=== PATIENT | female | born 1960 | race Caucasian/White ===

== ENCOUNTER 2023-11-17 17:56 | Inpatient (IN) | payer OTHER ==
[~2023-11-17] VITALS: Ht 170.2 cm; Wt 80.2 kg
[2023-11-17 18:38] LABS: BASOPHILS ABSOLUTE AUTO 0.09 K/mm3 (0.00-0.23); BASOPHILS PERCENT AUTO 1 % (0-2); EOSINOPHILS ABSOLUTE AUTO 0.34 K/mm3 (0.00-0.68); EOSINOPHILS PERCENT AUTO 3 % (0-6); Hematocrit 35.1 % (33.0-51.0); Hemoglobin 11.4 g/dL (11.5-16.0); IMMATURE GRAN ABSOLUTE AUTO 0.04 K/mm3 (0.00-0.10); IMMATURE GRAN PERCENT AUTO 0 % (0-1); LYMPHOCYTES ABSOLUTE AUTO 1.93 K/mm3 (0.84-5.20); LYMPHOCYTES PERCENT AUTO 19 % (21-46); MONOCYTES ABSOLUTE AUTO 1.06 K/mm3 (0.16-1.47); MONOCYTES PERCENT AUTO 10 % (4-13); Mean Corpuscular HGB 28.9 pg (26.0-34.0); Mean Corpuscular HGB Conc 32.5 g/dL (31.5-36.5); Mean Corpuscular Volume 89 fL (80-100); Mean Platelet Volume 10.8 fL (9.1-12.4); NEUTROPHILS ABSOLUTE AUTO 6.81 K/mm3 (1.96-9.15); NEUTROPHILS PERCENT AUTO 66 % (41-73); Platelet Count 414 K/mm3 (150-400); RDW Coefficient Variation 14.2 % (11.7-14.2); RDW Standard Deviation 46.4 fL (35.1-46.3); Red Blood Cell Count 3.94 M/mm3 (3.80-5.20); White Blood Cell Count 10.27 K/mm3 (4.00-11.30)
[2023-11-17] MEDS ORDERED: Ondansetron HCl 2 MG / ML 2ML Vial IV ONE (18:50)
[2023-11-17] MEDS ORDERED: HYDROmorphone HCl/Pf 1MG SYR IV ONE ×2 (18:50→21:20)
[2023-11-17 18:56] LABS: Albumin, Blood 3.1 g/dL (3.4-5.0); Albumin/Globulin Ratio 0.6 (0.8-1.8); Bilirubin, Total 0.2 mg/dL (0.1-1.0); Bun/Creatinine Ratio 10.4 (12.0-20.0); Calcium, Blood 9.6 mg/dL (8.5-10.1); Creatinine, Blood 7.05 mg/dL (0.40-1.00); Potassium, Blood 4.9 mmol/L (3.5-5.5); Total Protein, Blood 8.1 g/dL (6.4-8.2)
[2023-11-17 20:05] LABS: Source, Urine Clean Catch
[2023-11-17 20:07] LABS: Appearance, Urine Clear (Clear); Bilirubin, Urine Neg (Neg); Blood, Urine Neg (Neg); Color, Urine Yellow (P-Yellow); Glucose Qualitative, Urine Neg (Neg); Ketones, Urine Neg (Neg); Leukocyte Esterase, Urine Neg (Neg); Nitrite, Urine Neg (Neg); Protein, Urine Neg (Neg); Specific Gravity, Urine 1.015 (1.003-1.022); Urobilinogen, Urine NORM (Normal)
[2023-11-17] MEDS ORDERED: NS 1,000 ML IV SCH ×2 (21:20→22:00)
[2023-11-17] MEDS ORDERED: Acetaminophen 325 MG TABLET PO PRN (21:30)
[2023-11-17] MEDS ORDERED: Ondansetron HCl 2 MG / ML 2ML Vial IV PRN (21:30)
[2023-11-17] MEDS ORDERED: FentaNYL Citrate 50 MCG/ML 2 ML Injection IV PRN (21:30)
[2023-11-17] MEDS ORDERED: LOVASTATIN40 MG PO (22:41)
[2023-11-17 23:36] VITALS: BP 161/77
[2023-11-17] MEDS ORDERED: Sodium Bicarb 8.4% Inj 75 MEQ in Sodium Chloride 0.45% 1,000 ML IV SCH (23:59)
[2023-11-18] VITALS (7 sets, daily range): BP systolic 142–163; BP diastolic 73–92
--- NOTE | 2023-11-18 00:15 | NUR ---
ADMISSION: PATIENT WAS RECIEVED FROM ER VIA WHEEL CHAIR. ABLE TO AMBULATE WITH A STEADY GAIT TO THE BED. PATIENT IS ORIENTED TO THE ROOM AND CALL RAMOS. EDUCATION IS GIVEN ON NO SMOKING POLICY AND VERBALIZES UNDERSTANDING. PATIENT REPORTS LOW BACK PAIN 9/10 AND BP IS ELEVATED. TYLENOL AND IV FENTANYL WAS GIVEN WITH GOOD EEFECT.
--- NOTE | 2023-11-18 05:00 | NUR ---
SHIFT SUMMARY: PATIENT IS A&OX4, REPORTS LOW BACK PAIN 9. IV FENTANYL AND TYLENOL WERE GIVEN WITH GOOD EFFECT. VSS, PATIENT HAS BEEN NPO SINCE ME.
[2023-11-18 05:36] LABS: BASOPHILS ABSOLUTE AUTO 0.11 K/mm3 (0.00-0.23); BASOPHILS PERCENT AUTO 1 % (0-2); EOSINOPHILS ABSOLUTE AUTO 0.29 K/mm3 (0.00-0.68); EOSINOPHILS PERCENT AUTO 3 % (0-6); Hematocrit 30.3 % (33.0-51.0); Hemoglobin 9.7 g/dL (11.5-16.0); IMMATURE GRAN ABSOLUTE AUTO 0.02 K/mm3 (0.00-0.10); IMMATURE GRAN PERCENT AUTO 0 % (0-1); LYMPHOCYTES ABSOLUTE AUTO 1.63 K/mm3 (0.84-5.20); LYMPHOCYTES PERCENT AUTO 18 % (21-46); MONOCYTES ABSOLUTE AUTO 1.07 K/mm3 (0.16-1.47); MONOCYTES PERCENT AUTO 12 % (4-13); Mean Corpuscular HGB 28.8 pg (26.0-34.0); Mean Corpuscular Volume 90 fL (80-100); Mean Platelet Volume 11.1 fL (9.1-12.4); NEUTROPHILS ABSOLUTE AUTO 5.97 K/mm3 (1.96-9.15); NEUTROPHILS PERCENT AUTO 66 % (41-73); Platelet Count 369 K/mm3 (150-400); RDW Coefficient Variation 14.6 % (11.7-14.2); RDW Standard Deviation 47.8 fL (35.1-46.3); Red Blood Cell Count 3.37 M/mm3 (3.80-5.20); White Blood Cell Count 9.09 K/mm3 (4.00-11.30)
[2023-11-18 06:03] LABS: Magnesium, Blood 2.4 mg/dL (1.6-2.4); Uric Acid, Blood 7.6 mg/dL (2.6-6.0)
[2023-11-18 06:08] LABS: Alanine Aminotransfer (ALT/SGP 11 U/L (12-78); Albumin, Blood 2.5 g/dL (3.4-5.0); Albumin/Globulin Ratio 0.6 (0.8-1.8); Alk Phos 53 U/L (50-136); Anion Gap 17 mmol/L (3-11); Aspartate Aminotrans (AST/SGOT 14 U/L (12-37); Bilirubin, Direct <0.1 mg/dL (0.0-0.3); Bilirubin, Indirect Unable to Calculate mg/dL (0.1-0.7); Bilirubin, Total 0.2 mg/dL (0.1-1.0); Blood Urea Nitrogen 81 mg/dL (8-24); Bun/Creatinine Ratio 10.2 (12.0-20.0); CO2, Blood 15 mmol/L (21-32); Calcium, Blood 8.3 mg/dL (8.5-10.1); Chloride, Blood 114 mmol/L (98-108); Creatinine, Blood 7.93 mg/dL (0.40-1.00); Glomerular Filtration Rate 5 (60-); Glucose, Blood 85 mg/dL (70-99); Potassium, Blood 5.4 mmol/L (3.5-5.5); Sodium, Blood 141 mmol/L (136-145); Total Protein, Blood 6.5 g/dL (6.4-8.2)
[2023-11-18 06:10] LABS: Phosphorus, Blood 8.1 mg/dL (2.5-4.9)
[2023-11-18] MEDS ORDERED: Sodium Bicarb 8.4% 1 MEQ/ML 50 ML Vial IV ONE (06:35)
[2023-11-18] MEDS ORDERED: Sodium Bicarb 8.4% Inj 150 MEQ in Dextrose 5% 1,000 ML IV SCH ×2 (06:40→14:25)
--- NOTE | 2023-11-18 06:40 | NUR ---
CRITICAL LAB: PHOS IS 8.1, DR DELCID WAS NOTIFIED. NEW ORDER OBTAINED FOR SODIUM BICARB PUSH.
[2023-11-18] MEDS ORDERED: Docusate Sodium 100 MG Cap PO SCH (09:00)
[2023-11-18] MEDS ORDERED: NS 250 ML IV ONE (12:07)
[2023-11-18] MEDS ORDERED: NS 500 ML IV ONE (12:29)
[2023-11-18] MEDS ORDERED: FentaNYL Citrate 50 MCG/ML 2 ML Injection ONE ×2 (12:29→13:33)
[2023-11-18] MEDS ORDERED: Midazolam HCl 1MG / ML 2ML Vial ONE ×2 (12:29→13:32)
[2023-11-18 14:12] LABS: Albumin, Blood 2.9 g/dL (3.4-5.0); Anion Gap 16 mmol/L (3-11); Blood Urea Nitrogen 77 mg/dL (8-24); Bun/Creatinine Ratio 9.4 (12.0-20.0); CO2, Blood 20 mmol/L (21-32); Calcium, Blood 8.9 mg/dL (8.5-10.1); Chloride, Blood 109 mmol/L (98-108); Creatinine, Blood 8.23 mg/dL (0.40-1.00); Glomerular Filtration Rate 5 (60-); Glucose, Blood 86 mg/dL (70-99); Phosphorus, Blood 8.2 mg/dL (2.5-4.9); Potassium, Blood 5.5 mmol/L (3.5-5.5); Sodium, Blood 139 mmol/L (136-145)
[2023-11-18] MEDS ORDERED: Sodium Zirconium Cyclosilicate 10 GM Packet PO SCH (15:00)
[2023-11-18] MEDS ORDERED: Darbepoetin Alfa In Albumn Sol 40 MCG/0.4 ML SC ONE (16:00)
[2023-11-18] MEDS ORDERED: Calcium Acetate 667 MG Gel Cap PO SCH (17:30)
--- NOTE | 2023-11-18 18:28 | NUR ---
SUMMARY- PT A/O X4, COOPERATIVE WITH CARE. MOD ANXIETY RELATED TO SITUATION, CONSTANT WORRY AND QUESTIONS. PT ABLE TO AMBULATE SBA WITH ASSIST OF IV POLE. PT HAD BILAT NEPH TUBES PLACED TODAY IN I.R. WITH DR. BACH. LG AMOUNTS OF URINE FROM R SIDE, PEACH IN COLOR, NO CLOTS. L SIDE DRAINING LESS AMOUNT BUT PATENT AND DRAINING MURRIETA IN COLOR. VSS. PAIN IN BACK (CHRONIC) RELEIVED WITH FENTANYL 50MCG Q2-4 PRN. PT TOLERATED RENAL DIET ABOUT 50% AND CLEAR LIQ DIET. IV NAHCO3 CONT TO INFUSE INCREASED RATE OF 125/HR. WILL REPORT TO NOC PARTH
[2023-11-18] MEDS ORDERED: Atorvastatin 40 MG Tab PO SCH (21:00)
[2023-11-18] MEDS ORDERED: OxyCODONE HCL 5 MG TAB PO PRN (23:10)
[2023-11-19 00:01] VITALS: BP 145/75
[2023-11-19 05:05] LABS: Hematocrit 31.5 % (33.0-51.0); Hemoglobin 10.4 g/dL (11.5-16.0)
[2023-11-19 05:50] LABS: Magnesium, Blood 2.3 mg/dL (1.6-2.4)
[2023-11-19 05:56] LABS: Albumin, Blood 2.7 g/dL (3.4-5.0); Anion Gap 15 mmol/L (3-11); Blood Urea Nitrogen 71 mg/dL (8-24); CO2, Blood 25 mmol/L (21-32); Calcium, Blood 8.6 mg/dL (8.5-10.1); Chloride, Blood 105 mmol/L (98-108); Creatinine, Blood 7.08 mg/dL (0.40-1.00); Glomerular Filtration Rate 6 (60-); Glucose, Blood 106 mg/dL (70-99); Sodium, Blood 141 mmol/L (136-145)
[2023-11-19 06:11] VITALS: BP 153/75
--- NOTE | 2023-11-19 06:27 | NUR ---
SHIFT SUMMARY PT A&OX4 AND ANSWERS QUESTIONS APPROPRIATELY. PT POST-OP NEPHROLOGY PLACEMENT. PT SHOWS INCREASED LEVELS OF ANXIETY SURROUNDING POST-OP RESTRICTIONS. PT EDUCATED ON RESTRICTIONS AND THE IMPORTANCE OF AMBULATION AFTER SURGERY. PT VERBALIZED UNDDERSTANDING. PT MEDICATED SCHEDULED AND PRN PER EMAR. LEFT NEPHROSTOMY LEAKED DURING NIGHT, BUT BANDAGE REMAINS C/D/L. HARDWARE TIGHTENED AND CHECKED, NO LEAKAGE CURRENTLY OBSERVED. VSS, NO COMPLAINTS OF CP/PRESSURE OR SOB. NO ACUTE EVENTS AT THIS TIME. FALL PRECAUTIONS IN PLACE AND CALL LIGHT INREACH.
[2023-11-19] MEDS ORDERED: NS 1,000 ML IV SCH (07:10)
[2023-11-19 07:44] VITALS: BP 158/83
[2023-11-19] MEDS ORDERED: OxyCODONE HCL 5 MG TAB PO PRN (10:35)
[2023-11-19] MEDS ORDERED: Sennosides 8.6 MG Tab PO PRN (10:45)
--- NOTE | 2023-11-19 11:40 | NUR ---
1100- DR BACH IN TO EVAL PT THIS MORNING. AWARE OF THE LG AMOUNT OF OUTPUT FROM THE R SIDE AND MURRIETA COLOR OF THE LEFT AND LESSER OUTPUT- ANSWERED PT'S QUESTIONS. INSTRUCTED RN TO FLUSH NEPH TUBES BILAT DAILY WITH STERILE 10ML SALINE SYRINGE GIVE IT A STRONG FLUSH ENCOURAGING STONES TO FLUSH OUT. WILL WRITE VERBAL ORDER
[2023-11-19 14:50] VITALS: BP 161/84
--- NOTE | 2023-11-19 17:12 | NUR ---
"Spiritual Care | Pt. Request Pt. is standing in her room when she welcomes my visit. Pt. is pleasant. facilitate a life review and consider many matters or personal himanshu and belief. Pt. displays evidence of trust, and verbalizes that she was looking forward to praying together. As we were praying a Rapid Response was called for another pt. This Pt. verbalized gratitude for the spiritual care visit and welcomed this hot mill roller to return."
--- NOTE | 2023-11-19 17:32 | NUR ---
SUMMARY- PT A/O X4, AMBULATES IN ROOM STEADY ON FEET SBA WITH IV POLE. NEPH TUBES BILAT, R DRAINING PROFUSELY, LIGHT MURRIETA NO CLOTS. L DRAINING SPARINGLY MED MURRIETA, NO CLOTS. FLUSHED BILAT NEPH WITH 10ML NS. AFTER FLUSH, R DRAINED HEAVILY 600ML/HR. FOR A FEW HOURS. PT TOLERATING FOOD AND FLUIDS. PAIN CONTROLLED WITH OXYCODONE 5MG APPROX Q4. MEDICATED ONCE WITH FENT 25MCG AFTER FLUSHING NEPH TUBES, PT HAD SEVERE KIDNEY DISCOMFORT. MED AIDED IN RELEIF. PT NAPPED AFTER LUNCH FOR A FEW HOURS. CONT WITH IVF NS AT 50ML/HR, DR DELCID MANAGING IVF AND ELECTROLYTES. TAKING PHOSLO WITH MEALS. VSS, CONT PULSE OX STABLE, CONNECTED WHILE SLEEPING. WILL REPORT TO NOC RN
[2023-11-19 19:35] VITALS: BP 164/88
[2023-11-20 03:18] VITALS: BP 131/69
[2023-11-20 06:03] LABS: Hematocrit 31.5 % (33.0-51.0); Hemoglobin 10.3 g/dL (11.5-16.0)
[2023-11-20 06:25] LABS: Albumin, Blood 2.7 g/dL (3.4-5.0); Anion Gap 12 mmol/L (3-11); Blood Urea Nitrogen 51 mg/dL (8-24); Bun/Creatinine Ratio 10.2 (12.0-20.0); CO2, Blood 26 mmol/L (21-32); Chloride, Blood 107 mmol/L (98-108); Creatinine, Blood 5.01 mg/dL (0.40-1.00); Glomerular Filtration Rate 9 (60-); Glucose, Blood 128 mg/dL (70-99); Magnesium, Blood 1.9 mg/dL (1.6-2.4); Phosphorus, Blood 5.8 mg/dL (2.5-4.9); Potassium, Blood 3.1 mmol/L (3.5-5.5); Sodium, Blood 142 mmol/L (136-145)
[2023-11-20] MEDS ORDERED: Potassium Chl 20MEQ/Water100ML 100 ML IV STA (06:35)
[2023-11-20] MEDS ORDERED: Potassium Chloride 20 MEQ TabCR PO ONE (06:35)
[2023-11-20 08:04] VITALS: BP 135/69
--- NOTE | 2023-11-20 10:27 | NUR ---
Pt. is awake and sitting in a chair when she welcomes my visit. Pt. is pleasant but verbalizes about the discomfort of her potassium drip. Listen with empathy and a calm presence. Pt. displays evidence of being more discourged than our visit yesterday. At the Pts. request this special education aide opened the window blinds. Prayed with Pt. Pt. verbalized gratitude for the spiritual care visit, and displayed a ct scan technologist countenance after our visit. Will remain available to the Pt.
[2023-11-20 16:12] VITALS: BP 131/74
--- NOTE | 2023-11-20 18:20 | NUR ---
SHIFT SUMMARY PT AOX4, CALLS AND MAKES HER NEEDS KNOWN. SBA TO THE BR TO ASSIST WITH MANAGING LINES. PT CAN ALSO BE SLIGHTLY UNSTEADY ON HER FEET. BL NEPHROSTOMY TUBES PATENT AND DRAINING. PT MEDICATED FOR PAIN PER THE EMAR. PT ANXIOUS ABOUT GOING HOME BUT THIS NURSE CONTINUED TO TRY TO EDUCATE THE PT ABOUT THE PROCESS AND PROCEDURE FOR MANAGEMENT OF THE TUBES. PT UP IN THE CHAIR MOST OF THE SHIFT. PT ALSO REPOSITIONS HERSELF IN BED. CALL LIGHT WITHIN REACH, BED LOCKED AND IN THE LOWEST POSITION. WILL REPORT TO ONCOMING NURSE.
[2023-11-20 19:21] VITALS: BP 148/81
[2023-11-21 03:24] VITALS: BP 136/67
--- NOTE | 2023-11-21 04:55 | NUR ---
SHIFT SUMMARY MEDICATED TWICE FOR PAIN. RIGHT NEPH. TUBE DRAINIG WELL, PINK TINGED URINE. THE LEFT NOT AT MUCH. THE LEFT DRESSING MAY BE DAMP IT IS HARD TO TELL.PATIENT ANXIOUS, WORRIED ABOU THE NEPHROSTOMY TUBES.
[2023-11-21 05:51] LABS: Hemoglobin 9.6 g/dL (11.5-16.0)
[2023-11-21 06:23] LABS: Albumin, Blood 2.5 g/dL (3.4-5.0); Anion Gap 11 mmol/L (3-11); Blood Urea Nitrogen 37 mg/dL (8-24); Bun/Creatinine Ratio 11.1 (12.0-20.0); CO2, Blood 26 mmol/L (21-32); Calcium, Blood 8.8 mg/dL (8.5-10.1); Chloride, Blood 109 mmol/L (98-108); Creatinine, Blood 3.32 mg/dL (0.40-1.00); Glomerular Filtration Rate 15 (60-); Glucose, Blood 88 mg/dL (70-99); Magnesium, Blood 1.6 mg/dL (1.6-2.4); Phosphorus, Blood 3.7 mg/dL (2.5-4.9); Potassium, Blood 3.4 mmol/L (3.5-5.5); Sodium, Blood 143 mmol/L (136-145)
[2023-11-21] MEDS ORDERED: Potassium Chloride 20 MEQ TabCR PO ONE (06:35)
[2023-11-21 07:35] VITALS: BP 133/92
[2023-11-21] MEDS ORDERED: Polyethylene Glycol 3350 17 gm PO PRN (11:45)
[2023-11-21 15:16] VITALS: BP 145/80
--- NOTE | 2023-11-21 17:17 | NUR ---
SHIFT SUMMARY PT AOX4, SBA TO THE BR. MUCH STRONGER AMBULATING TODAY. MEDICATED PER THE EMAR FOR PAIN. CALLS AND MAKES HER NEEDS KNOWN. UP TO THE CHAIR MOST OF THE DAY, REPOSITIONS HERSELF IN CHAIR AND BED. BOWEL CARE MEDICATIONS OBTAINED AND ADMINISTERED PER THE EMAR. BL NEPHROSTOMY DRAINS PATENT AND DRAINING. NO COMPLAINTS ABOUT THE DRAINS PER THE PT. PT LESS ANXIOUS TODAY ABOUT THE DRAINS, REASSURANCE AND EDUCATION PROVIDE CONFIDENCE IN THE PT. PLAN IS FOR THE PT TO POSSIBLE DC TOMORROW. CALL LIGHT WITHIN REACH, BED LOCKED AND IN THE LOWEST POSITION. WILL REPORT TO ONCOMING NURSE.
[2023-11-21 19:47] VITALS: BP 162/79
[2023-11-22 03:54] VITALS: BP 126/75
--- NOTE | 2023-11-22 05:02 | NUR ---
DISTRICT TRAFFIC CHIEF PATIENT IS A&OX4, VITALS ARE STABLE, ON ROOM AIR, NOT ON TELE. PATIENT CALLS APPRAPRIATELY, CALL LIGHT IN REACH AND BED IS AT A LOW POSITION. PATIENT COMPLAINED OF PAIN TO HIS LEFT NEPHRO TUBE PAIN MEDS WERE GIVEN. LEFT NEPHRO TUBE HAS MINIMAL LEAK, PATIENT WANT THE DOCTOR TO TAKE A LOOK AT THE DRAINAGE DURING THE DAY SHIFT TO SEE IF THE LEAK COULD BE STOPPED. PATIENT TEND TO GET A LITTLE ANXCIOUS WHEN SHE FEELS THE LEAK.
[2023-11-22 05:49] LABS: BASOPHILS PERCENT AUTO 1 % (0-2); EOSINOPHILS PERCENT AUTO 5 % (0-6); Hematocrit 30.2 % (33.0-51.0); Hemoglobin 9.5 g/dL (11.5-16.0); IMMATURE GRAN ABSOLUTE AUTO 0.02 K/mm3 (0.00-0.10); IMMATURE GRAN PERCENT AUTO 0 % (0-1); LYMPHOCYTES ABSOLUTE AUTO 1.96 K/mm3 (0.84-5.20); LYMPHOCYTES PERCENT AUTO 25 % (21-46); MONOCYTES ABSOLUTE AUTO 0.92 K/mm3 (0.16-1.47); MONOCYTES PERCENT AUTO 12 % (4-13); Mean Corpuscular HGB 28.8 pg (26.0-34.0); Mean Corpuscular HGB Conc 31.5 g/dL (31.5-36.5); Mean Corpuscular Volume 92 fL (80-100); Mean Platelet Volume 10.8 fL (9.1-12.4); NEUTROPHILS ABSOLUTE AUTO 4.35 K/mm3 (1.96-9.15); NEUTROPHILS PERCENT AUTO 56 % (41-73); Platelet Count 363 K/mm3 (150-400); RDW Coefficient Variation 14.1 % (11.7-14.2); RDW Standard Deviation 47.8 fL (35.1-46.3); White Blood Cell Count 7.75 K/mm3 (4.00-11.30)
[2023-11-22 06:17] LABS: Albumin, Blood 2.4 g/dL (3.4-5.0); Anion Gap 8 mmol/L (3-11); Blood Urea Nitrogen 30 mg/dL (8-24); Bun/Creatinine Ratio 12.1 (12.0-20.0); CO2, Blood 28 mmol/L (21-32); Calcium, Blood 8.6 mg/dL (8.5-10.1); Chloride, Blood 110 mmol/L (98-108); Creatinine, Blood 2.47 mg/dL (0.40-1.00); Glomerular Filtration Rate 22 (60-); Glucose, Blood 91 mg/dL (70-99); Magnesium, Blood 1.7 mg/dL (1.6-2.4); Phosphorus, Blood 3.5 mg/dL (2.5-4.9); Potassium, Blood 3.4 mmol/L (3.5-5.5); Sodium, Blood 143 mmol/L (136-145)
[2023-11-22] MEDS ORDERED: Potassium Chloride 20 MEQ TabCR PO ONE (06:35)
[2023-11-22 07:19] VITALS: BP 137/71
[2023-11-22] MEDS ORDERED: Calcium Acetat667 MG PO (12:41)
[2023-11-22] MEDS ORDERED: SENN187 PO (12:41)
--- NOTE | 2023-11-22 13:42 | NUR ---
SHIFT/DISCHARGE SUMMARY: PATIENT A/OX4, ANXIOUS AT TIMES, PLEASANT AND COOPERATIVE c CARE. PATIENT BILAT NEPHROSTOMY DRESSING CHANGED, R NEPHRO DRAINING MORE CLEAR YELLOW URINE, L SIDE NEPHRO DRAINING LESS YELLOW PINKISH COLOR URINE. PATIENT MEDICATED FOR PAIN PER EMAR. PATIENT RECEIVED SCHEDULED MEDS PER EMAR. VITALS SIGNS REVIEWED. PATIENT REPORTS NO BM SINCE ADMISSION, RECEIVED BOWEL REGIMEN PER EMAR c NO RESULT. PATIENT HAS NO COMPLAINTS, REPORTS "NERVOUS" TO GO HOME c BILAT NEPHROSTOMY. PIV TO R HAND DC'D. PATIENT DISCHARGE HOME c GEN[facility]. DISCHARGE INSTRUCTIONS PACKET GIVEN TO PATIENT. EDUCATED PATIENT REGARDING BILAT NEPHROSTOMY DRAINAIGE, SELF CARE AT HOME, NEW RX, F/U c NEPHROLOGY AND PCP. PATIENT AND SPOUSE AT BEDSIDE VERBALIZED UNDERSTANDING AND NO FURTHER QUESTIONS. RX FAXED TO PATIENT PREFERRED PHARMACY-[facility]. ALL PATIENT PERSONAL BELONGINGS WERE SENT HOME c THE PATIENT. PATIENT LEFT THE ROOM AT 1323, TRANSPORTED VIA [employer] BY ROTARY CUTTERLEMUEL Smith TO PATIENT ENTRANCE.
== END 2023-11-22 13:20 | disposition home health service (06) | DRG 694 ==
LOC: ER 17:56 → MEDS 23:00
PROVIDERS: Emergency Medicine; Family Medicine; Internal Medicine Nephrology; ADMIT Student in an Organized Health Care Education/Training Program
PROC: 0T9330Z Drainage of Right Kidney Pelvis with Drainage Device, Percutaneous Approach (ICD-10-PCS; principal; 2023-11-18)
DX: N13.2 Hydronephrosis with renal and ureteral calculous obstruction (principal); K91.870 Postprocedural hematoma of a digestive system organ or structure following a digestive system procedure; E87.20 Acidosis, unspecified; S36.892A Contusion of other intra-abdominal organs, initial encounter; N17.9 Acute kidney failure, unspecified; N18.9 Chronic kidney disease, unspecified; E78.00 Pure hypercholesterolemia, unspecified; D63.1 Anemia in chronic kidney disease; K58.9 Irritable bowel syndrome, unspecified; E66.9 Obesity, unspecified; E87.6 Hypokalemia; F17.210 Nicotine dependence, cigarettes, uncomplicated; Z87.442 Personal history of urinary calculi; Z86.79 Personal history of other diseases of the circulatory system; Z93.6 Other artificial openings of urinary tract status; Z79.899 Other long term (current) drug therapy; E87.5 Hyperkalemia; E83.39 Other disorders of phosphorus metabolism; E88.09 Other disorders of plasma-protein metabolism, not elsewhere classified; Z98.890 Other specified postprocedural states; Z68.26 Body mass index [BMI] 26.0-26.9, adult
CPT/HCPCS: 36415; 51701; 51798; 76937; 80053; 80069; 81003; 82248; 82550; 83690; 83735; 84100; 84550; 85014; 85018; 85025; 94762; 96374-59; 96375-59; 99152; 99153; 99285-25; A9270; C1729; C1769; C2625; J0881; J1170; J2250; J2405; J3010; J3480; J7030; J7040; J7050; J7070; Q9967

== ENCOUNTER 2023-11-26 19:42 | Emergency (ER) | payer OTHER ==
[~2023-11-26] VITALS: Ht 170.2 cm; Wt 74.4 kg
[~2023-11-26 19:42] MED LIST: Calcium Acetat667 MG PO; LOVASTATIN40 MG PO; SENN187 PO
[2023-11-26 21:26] LABS: BASOPHILS ABSOLUTE AUTO 0.09 K/mm3 (0.00-0.23); BASOPHILS PERCENT AUTO 1 % (0-2); EOSINOPHILS ABSOLUTE AUTO 0.34 K/mm3 (0.00-0.68); EOSINOPHILS PERCENT AUTO 3 % (0-6); Hematocrit 34.1 % (33.0-51.0); Hemoglobin 10.7 g/dL (11.5-16.0); IMMATURE GRAN ABSOLUTE AUTO 0.03 K/mm3 (0.00-0.10); IMMATURE GRAN PERCENT AUTO 0 % (0-1); LYMPHOCYTES PERCENT AUTO 22 % (21-46); MONOCYTES PERCENT AUTO 11 % (4-13); Mean Corpuscular HGB 28.8 pg (26.0-34.0); Mean Corpuscular HGB Conc 31.4 g/dL (31.5-36.5); Mean Corpuscular Volume 92 fL (80-100); Mean Platelet Volume 10.5 fL (9.1-12.4); NEUTROPHILS ABSOLUTE AUTO 6.58 K/mm3 (1.96-9.15); NEUTROPHILS PERCENT AUTO 63 % (41-73); Platelet Count 408 K/mm3 (150-400); RDW Coefficient Variation 14.4 % (11.7-14.2); RDW Standard Deviation 48.4 fL (35.1-46.3); Red Blood Cell Count 3.71 M/mm3 (3.80-5.20); White Blood Cell Count 10.44 K/mm3 (4.00-11.30)
[2023-11-26 21:43] LABS: Albumin/Globulin Ratio 0.7 (0.8-1.8); Bilirubin, Total 0.2 mg/dL (0.1-1.0); Bun/Creatinine Ratio 15.2 (12.0-20.0); Calcium, Blood 9.2 mg/dL (8.5-10.1); Creatinine, Blood 1.45 mg/dL (0.40-1.00); Globulin, Blood 4.6 g/dL (2.2-4.0); Potassium, Blood 3.5 mmol/L (3.5-5.5); Total Protein, Blood 7.6 g/dL (6.4-8.2)
[2023-11-26 22:01] LABS: Source, Urine Clean Catch
[2023-11-26 22:26] LABS: Appearance, Urine Hazy (Clear); Bilirubin, Urine Neg (Neg); Blood, Urine 4+ (Neg); Color, Urine Yellow (P-Yellow); Glucose Qualitative, Urine Neg (Neg); Ketones, Urine Neg (Neg); Leukocyte Esterase, Urine 3+ (Neg); Nitrite, Urine Neg (Neg); Protein, Urine 3+ (Neg); Specific Gravity, Urine 1.015 (1.003-1.022); Urobilinogen, Urine NORM (Normal)
[2023-11-26 22:33] LABS: Bacteria Mod /hpf; Squamous Epithelial Cells Mod /hpf (Few)
[2023-11-26 22:34] LABS: Uric Acid Crystals Few /hpf
[2023-11-26 23:37] LABS: Source, Urine Clean Catch
[2023-11-27 00:06] LABS: Appearance, Urine Hazy (Clear); Bilirubin, Urine Neg (Neg); Blood, Urine 5+ (Neg); Glucose Qualitative, Urine Neg (Neg); Ketones, Urine Neg (Neg); Leukocyte Esterase, Urine 3+ (Neg); Nitrite, Urine Neg (Neg); Protein, Urine 3+ (Neg); Specific Gravity, Urine 1.005 (1.003-1.022); Urobilinogen, Urine NORM (Normal)
[2023-11-27 00:30] LABS: Color, Urine Pale Yellow (P-Yellow)
[2023-11-27 00:45] VITALS: BP 143/79
[2023-11-27 00:50] LABS: Bacteria Mod /hpf; Red Blood Cells, Urine 50-100 /hpf (0-2); Squamous Epithelial Cells Few /hpf (Few); White Blood Cells, Urine 25-50 /hpf (0-5)
[2023-11-27] MEDS ORDERED: CEPH500 PO (01:08)
[2023-11-27] MEDS ORDERED: RX Prepack 6 Tabs Oxycodone 5mg UD ONE (01:10)
== END 2023-11-27 01:29 | disposition home or self-care (01) ==
LOC: ER 19:42
PROVIDERS: Student in an Organized Health Care Education/Training Program
DX: K68.3 Retroperitoneal hematoma (principal); N39.0 Urinary tract infection, site not specified; Z93.6 Other artificial openings of urinary tract status; E78.5 Hyperlipidemia, unspecified; I10 Essential (primary) hypertension; Z79.899 Other long term (current) drug therapy
CPT/HCPCS: 74176; 80053; 81001; 85025; 99284-25; A9270

== ENCOUNTER 2023-11-28 10:55 | Emergency (ER) | payer OTHER ==
[~2023-11-28] VITALS: Ht 170.2 cm; Wt 74.4 kg
[~2023-11-28 10:55] MED LIST changes: +CEPH500 PO
--- NOTE | 2023-11-28 11:30 | NUR ---
Pt. is awake and sees this boring mill set up operator in the hallway and invites me to bedside. Pt. is known to this boring mill set up operator from a recent previous hospitalization. Pt. verbalized he concerns about a valve that has been leaking since she has been discharged. Pt. displayed evidence of frustration and verbalized that Dr. Rao sent her back to the hospital to have the leaky valve addressed. Pts. is at bedside. Prayed with Pt. and excused myself when the ER doctor arrived. Will remain available to Pt. and family.
[2023-11-28 13:47] VITALS: BP 110/95
== END 2023-11-28 13:47 | disposition home or self-care (01) ==
LOC: ER 10:55
DX: T83.032A Leakage of nephrostomy catheter, initial encounter (principal); I10 Essential (primary) hypertension; E78.5 Hyperlipidemia, unspecified; F17.210 Nicotine dependence, cigarettes, uncomplicated; Z79.899 Other long term (current) drug therapy
CPT/HCPCS: 99283

== ENCOUNTER 2024-01-06 06:36 | Emergency (ER) | payer OTHER ==
[~2024-01-06] VITALS: Ht 170.2 cm; Wt 71.8 kg
[2024-01-06 07:28] VITALS: BP 129/106
[2024-01-06] MEDS ORDERED: OXYC5 (07:33)
[2024-01-06 08:18] LABS: Source, Urine Nephrostomy
[2024-01-06 08:24] LABS: Appearance, Urine Hazy (Clear); Bilirubin, Urine Neg (Neg); Blood, Urine 4+ (Neg); Color, Urine Yellow (P-Yellow); Glucose Qualitative, Urine Neg (Neg); Ketones, Urine Neg (Neg); Leukocyte Esterase, Urine 3+ (Neg); Nitrite, Urine Neg (Neg); Protein, Urine 2+ (Neg); Specific Gravity, Urine 1.015 (1.003-1.022); Urobilinogen, Urine NORM (Normal)
[2024-01-06 08:34] LABS: BASOPHILS ABSOLUTE AUTO 0.08 K/mm3 (0.00-0.23); BASOPHILS PERCENT AUTO 1 % (0-2); EOSINOPHILS ABSOLUTE AUTO 0.18 K/mm3 (0.00-0.68); EOSINOPHILS PERCENT AUTO 2 % (0-6); Hemoglobin 12.2 g/dL (11.5-16.0); IMMATURE GRAN ABSOLUTE AUTO 0.03 K/mm3 (0.00-0.10); IMMATURE GRAN PERCENT AUTO 0 % (0-1); LYMPHOCYTES ABSOLUTE AUTO 1.67 K/mm3 (0.84-5.20); LYMPHOCYTES PERCENT AUTO 17 % (21-46); MONOCYTES ABSOLUTE AUTO 0.76 K/mm3 (0.16-1.47); MONOCYTES PERCENT AUTO 8 % (4-13); Mean Corpuscular HGB 28.4 pg (26.0-34.0); Mean Corpuscular HGB Conc 32.1 g/dL (31.5-36.5); Mean Corpuscular Volume 89 fL (80-100); Mean Platelet Volume 10.3 fL (9.1-12.4); NEUTROPHILS ABSOLUTE AUTO 7.18 K/mm3 (1.96-9.15); NEUTROPHILS PERCENT AUTO 73 % (41-73); Platelet Count 408 K/mm3 (150-400); RDW Coefficient Variation 14.6 % (11.7-14.2); RDW Standard Deviation 46.9 fL (35.1-46.3); Red Blood Cell Count 4.29 M/mm3 (3.80-5.20)
[2024-01-06 08:53] LABS: Bacteria Few /hpf; Squamous Epithelial Cells Rare /hpf (Few)
[2024-01-06 08:54] LABS: Uric Acid Crystals Mod /hpf
[2024-01-06 09:08] LABS: Albumin, Blood 3.4 g/dL (3.4-5.0); Albumin/Globulin Ratio 0.7 (0.8-1.8); Bilirubin, Total 0.2 mg/dL (0.1-1.0); Calcium, Blood 9.7 mg/dL (8.5-10.1); Creatinine, Blood 1.15 mg/dL (0.40-1.00); Globulin, Blood 5.2 g/dL (2.2-4.0); Potassium, Blood 4.2 mmol/L (3.5-5.5); Total Protein, Blood 8.6 g/dL (6.4-8.2)
== END 2024-01-06 10:40 | disposition home or self-care (01) ==
LOC: ER 06:36
PROVIDERS: Emergency Medicine
DX: N99.522 Malfunction of incontinent external stoma of urinary tract (principal); Z79.899 Other long term (current) drug therapy; E78.5 Hyperlipidemia, unspecified; I10 Essential (primary) hypertension; F17.210 Nicotine dependence, cigarettes, uncomplicated
CPT/HCPCS: 80053; 81001; 85025; 87077; 87086; 87186; 99283

== ENCOUNTER 2024-01-20 06:22 | Emergency (ER) | payer OTHER ==
[~2024-01-20] VITALS: Ht 170.2 cm; Wt 71.7 kg
[~2024-01-20 06:22] MED LIST changes: +OXYC5
[2024-01-20 06:30] VITALS: BP 166/97
[2024-01-20] MEDS ORDERED: OxyCODONE HCL 5 MG TAB PO ONE (09:35)
== END 2024-01-20 13:55 | disposition home or self-care (01) ==
LOC: ER 06:22
DX: Z43.6 Encounter for attention to other artificial openings of urinary tract (principal); R10.9 Unspecified abdominal pain; F17.210 Nicotine dependence, cigarettes, uncomplicated; Z79.899 Other long term (current) drug therapy
CPT/HCPCS: 99283; A9270

== ENCOUNTER 2024-02-14 08:32 | Day surgery (SDC) | payer OTHER ==
[~2024-02-14] VITALS: Ht 170.2 cm; Wt 71.7 kg
[2024-02-14] VITALS (9 sets, daily range): BP systolic 129–151; BP diastolic 74–89
[~2024-02-14 08:32] MED LIST changes: -OXYC5; +OXYC5 PO
[2024-02-14] MEDS ORDERED: Midazolam HCl 1MG / ML 2ML Vial ONE ×3 (10:11→11:13)
[2024-02-14] MEDS ORDERED: FentaNYL Citrate 50 MCG/ML 2 ML Injection ONE ×3 (10:11→11:13)
[2024-02-14] MEDS ORDERED: NS 500 ML IV ONE (10:12)
--- NOTE | 2024-02-14 12:20 | NUR ---
assumed care of patient. she is in bed c/o bladder feeling full and uncomforatble. bilateral neph tubes coiled and taped to side.
--- NOTE | 2024-02-14 12:40 | NUR ---
patient ambulated to [facility] with standby assist. voided small amount of red tinged urine. returned to bed, sitting at bedside.
--- NOTE | 2024-02-14 13:48 | NUR ---
patient up to void small ammounts several times, c/o urgency feeling.
--- NOTE | 2024-02-14 14:05 | NUR ---
Dr Chew here to speak to patient about procedure, and answer questions
--- NOTE | 2024-02-14 14:50 | NUR ---
patient and verbalized understanding of discharge instructions and precautions, encouraged fluid intake for patient. patient took home pain medication, oked by Dr Chew. patient has been up to rest room to void small ammounts, urine has begun to clear. Dressings intact to bilateral neph tubes, no drainage or swelling. iv site dced with catheter intact. patient discahrged via wheel chair, driving.
== END 2024-02-14 16:44 | disposition home or self-care (01) ==
LOC: MHTC 08:32
DX: Z43.6 Encounter for attention to other artificial openings of urinary tract (principal); N13.30 Unspecified hydronephrosis; E78.5 Hyperlipidemia, unspecified; F17.210 Nicotine dependence, cigarettes, uncomplicated; N18.9 Chronic kidney disease, unspecified; Z91.048 Other nonmedicinal substance allergy status
CPT/HCPCS: 50435; 50693; 99152; 99153; C1729; C1769; C1887; C1894; C2617; J2250; J3010; J7040; Q9967

== ENCOUNTER 2024-02-16 14:57 | Inpatient (IN) | payer OTHER ==
[~2024-02-16] VITALS: Ht 170.2 cm; Wt 74.5 kg
[2024-02-16] MEDS ORDERED: FentaNYL Citrate 50 MCG/ML 2 ML Injection IV ONE (17:05)
[2024-02-16 17:47] LABS: BASOPHILS ABSOLUTE AUTO 0.04 K/mm3 (0.00-0.23); BASOPHILS PERCENT AUTO 0 % (0-2); EOSINOPHILS ABSOLUTE AUTO 0.01 K/mm3 (0.00-0.68); EOSINOPHILS PERCENT AUTO 0 % (0-6); Hematocrit 36.5 % (33.0-51.0); Hemoglobin 11.9 g/dL (11.5-16.0); IMMATURE GRAN PERCENT AUTO 1 % (0-1); LYMPHOCYTES ABSOLUTE AUTO 1.06 K/mm3 (0.84-5.20); LYMPHOCYTES PERCENT AUTO 6 % (21-46); MONOCYTES ABSOLUTE AUTO 1.39 K/mm3 (0.16-1.47); MONOCYTES PERCENT AUTO 8 % (4-13); Mean Corpuscular HGB 28.7 pg (26.0-34.0); Mean Corpuscular HGB Conc 32.6 g/dL (31.5-36.5); Mean Corpuscular Volume 88 fL (80-100); Mean Platelet Volume 10.7 fL (9.1-12.4); NEUTROPHILS ABSOLUTE AUTO 15.35 K/mm3 (1.96-9.15); NEUTROPHILS PERCENT AUTO 86 % (41-73); Platelet Count 395 K/mm3 (150-400); RDW Coefficient Variation 14.6 % (11.7-14.2); RDW Standard Deviation 47.5 fL (35.1-46.3); Red Blood Cell Count 4.15 M/mm3 (3.80-5.20); White Blood Cell Count 17.95 K/mm3 (4.00-11.30)
[2024-02-16 18:04] LABS: Bun/Creatinine Ratio 9.6 (12.0-20.0); Calcium, Blood 9.4 mg/dL (8.5-10.1); Creatinine, Blood 5.32 mg/dL (0.40-1.00); Potassium, Blood 4.4 mmol/L (3.5-5.5)
[2024-02-16] MEDS ORDERED: FLU VACC TS2024-25(6MOS UP)/PF 45 MCG/0.5 ML SYRINGE IM SCH (18:25)
[2024-02-16] MEDS ORDERED: Acetaminophen 325 MG TABLET PO PRN (18:25)
[2024-02-16] MEDS ORDERED: Ondansetron HCl 2 MG / ML 2ML Vial IV PRN (18:25)
[2024-02-16 18:45] LABS: Source, Urine Straight Cath
[2024-02-16 18:48] LABS: Appearance, Urine Turbid (Clear); Bilirubin, Urine Neg (Neg); Blood, Urine 5+ (Neg); Color, Urine Brown (P-Yellow); Glucose Qualitative, Urine Neg (Neg); Ketones, Urine Neg (Neg); Leukocyte Esterase, Urine 3+ (Neg); Nitrite, Urine Neg (Neg); Protein, Urine 3+ (Neg); Specific Gravity, Urine 1.015 (1.003-1.022); Urobilinogen, Urine NORM (Normal)
[2024-02-16] MEDS ORDERED: NS 1,000 ML IV SCH ×2 (18:50→20:00)
[2024-02-16] MEDS ORDERED: CefTRIAXone Sodium 1,000 MG in NS 100 ML IV ONE (18:50)
[2024-02-16 18:55] LABS: Amorphous Mod (0-Heavy); Mucus Light (0-Heavy); Red Blood Cells, Urine TNTC /hpf (0-2); Squamous Epithelial Cells Mod /hpf (Few); White Blood Cells, Urine TNTC /hpf (0-5)
[2024-02-16 18:56] LABS: Bacteria Many /hpf
[2024-02-16] MEDS ORDERED: HYDROmorphone HCl/Pf 1MG SYR IV ONE (19:05)
[2024-02-16] MEDS ORDERED: FentaNYL Citrate 50 MCG/ML 2 ML Injection IV PRN ×2 (19:30→23:15)
[2024-02-16] MEDS ORDERED: HYDROmorphone HCl/Pf 1MG SYR IV PRN (19:30)
[2024-02-16] MEDS ORDERED: OxyCODONE HCL 5 MG TAB PO PRN (19:30)
[2024-02-16] MEDS ORDERED: Trimethoprim/Sulfamethoxazole DS Tab PO ONE (20:30)
[2024-02-16 20:47] VITALS: BP 143/74
[2024-02-16] MEDS ORDERED: Docusate Sodium 100 MG Cap PO SCH (21:00)
[2024-02-16] MEDS ORDERED: Trimethoprim/Sulfamethoxazole SS Tab PO ONE (21:00)
[2024-02-16] MEDS ORDERED: Lactobacil 2-S.Thermo-Bifido 1 1 Cap PO SCH (21:00)
--- NOTE | 2024-02-16 21:59 | NUR ---
PATIENT IS A NEW ADMIT FROM THE ED. AXOX 4 AND TWO ASSIST FROM GURNEY TO BED. ANXIOUS. NS INFUSING W/O FROM THE ED. NIECE PRESENT ON ADMIT. DENIES CHEST PAIN, SOB, AND N/V. ON ROOM AIR. BILATERAL NEPHROSTOMY TUBES PUT IN IN OCTOBER PER PATIENT. ED RN FELISA REPORTS NO NEPHROSTOMY BAGS PRESENT IN HOSPITAL AT THIS TIME. SHE REPORTS GRAIN RECEIVER IS AWARE AND TECHNICAL TRAINING MANAGERPARTH RUSSELL. REPORTED FLANK PAIN AND SHE SAID IV DILAUDID AND OXYCODONE NOT EFFECTIVE AND REFUSED BOTH AT THIS TIME. ORIENTED TO ROOM AND CALL LIGHT SYSTEM. NIECE GONE FOR EVENING. WCTM.
[2024-02-17 03:33] VITALS: BP 134/77
--- NOTE | 2024-02-17 04:17 | NUR ---
SHIFT SUMMARY PATIENT HAD NO ACUTE CHANGES. AXOX 4 AND BEDREST. DENIES CHEST PAIN, SOB, AND N/V. BILATERAL NEPHROSTOMY TUBES CAPPED. ED, OIL WELL SERVICE UNIT OPERATOR, AND YARD CLEANER REPORTS NO NEPHROSTOMY BAGS AT THIS TIME. HOSPITALIST DR PRITCHETT NOTIFED AND REPORTED DR BACH CONSULT IN MORNING AND WILL UPDATE US. RIGHT SIDE DRAINED 100 mL AND LS DRAIN 75 mL BOTH WITH SEDIMENT. REPORTED FLANK PAIN X 2 AND IV FENTANYL 50 MCG GIVEN WITH GOOD EFFECT. PIV INTACT. NS INFUSING @ 125 mL/HR BAG 2 OF 3. SLEPT ON/OFF. CALL LIGHT IN REACH. BED IN LOWEST POSITION. WILL CONTINUE TO MONITOR UNTIL DAY SHIFT NURSE ASSUMES CARE.
[2024-02-17 05:38] LABS: BASOPHILS ABSOLUTE AUTO 0.05 K/mm3 (0.00-0.23); BASOPHILS PERCENT AUTO 0 % (0-2); EOSINOPHILS ABSOLUTE AUTO 0.03 K/mm3 (0.00-0.68); EOSINOPHILS PERCENT AUTO 0 % (0-6); Hematocrit 29.1 % (33.0-51.0); Hemoglobin 9.7 g/dL (11.5-16.0); IMMATURE GRAN ABSOLUTE AUTO 0.18 K/mm3 (0.00-0.10); IMMATURE GRAN PERCENT AUTO 1 % (0-1); LYMPHOCYTES ABSOLUTE AUTO 0.55 K/mm3 (0.84-5.20); LYMPHOCYTES PERCENT AUTO 4 % (21-46); MONOCYTES ABSOLUTE AUTO 0.99 K/mm3 (0.16-1.47); MONOCYTES PERCENT AUTO 7 % (4-13); Mean Corpuscular HGB 28.7 pg (26.0-34.0); Mean Corpuscular HGB Conc 33.3 g/dL (31.5-36.5); Mean Corpuscular Volume 86 fL (80-100); Mean Platelet Volume 10.9 fL (9.1-12.4); NEUTROPHILS ABSOLUTE AUTO 13.33 K/mm3 (1.96-9.15); NEUTROPHILS PERCENT AUTO 88 % (41-73); Platelet Count 314 K/mm3 (150-400); RDW Coefficient Variation 14.6 % (11.7-14.2); RDW Standard Deviation 46.3 fL (35.1-46.3); Red Blood Cell Count 3.38 M/mm3 (3.80-5.20); White Blood Cell Count 15.13 K/mm3 (4.00-11.30)
[2024-02-17 06:16] LABS: Albumin, Blood 2.1 g/dL (3.4-5.0); Albumin/Globulin Ratio 0.5 (0.8-1.8); Bilirubin, Total 0.4 mg/dL (0.1-1.0); Bun/Creatinine Ratio 9.8 (12.0-20.0); Calcium, Blood 8.4 mg/dL (8.5-10.1); Creatinine, Blood 5.63 mg/dL (0.40-1.00); Phosphorus, Blood 4.4 mg/dL (2.5-4.9); Potassium, Blood 4.5 mmol/L (3.5-5.5); Total Protein, Blood 6.1 g/dL (6.4-8.2)
[2024-02-17 07:42] VITALS: BP 113/61
[2024-02-17] MEDS ORDERED: Heparin Sodium 5000 Units/ML 1ML MDV SC SCH (09:00)
[2024-02-17] MEDS ORDERED: OXYC10TA19 PO (12:54)
[2024-02-17] MEDS ORDERED: Cefepime HCl 1,000 MG in NS 100 ML IV SCH (14:00)
[2024-02-17 15:26] VITALS: BP 105/61
[2024-02-17] MEDS ORDERED: CefTRIAXone Sodium 1,000 MG in NS 100 ML IV SCH (19:00)
--- NOTE | 2024-02-17 19:28 | NUR ---
DAY SHIFT SUMMARY: A&Ox4. PLEASANT AND COOPERATIVE WITH CARE. CALLS APPROPRIATELY AND IS ABLE TO ADVOCATE NEEDS EFFECTIVELY. CONTINENT OF BOWEL AND BLADDER. LBM TODAY. AMBULATES INDEPENDENTLY WITHIN ROOM; WHEELCHAIR FOR LONG DISTANCES AND WALKING FOR SHORT DISTANCES. MEDS WHOLE WITH FLUIDS. MEDICATED x2 PRN PAIN. PER INFECTION CONTROL, OKAY TO DC CONTACT PRECAUTIONS PROVIDER DETERMINED NO MARKERS FOR SCABIES AND IS MORE LIKELY RELATED TO HER KIDNEY FUNCTION. WILL HAVE DIALYSIS TOMORROW MORNING, PER SUSI, DIALYSIS NURSE. BED IN LOWEST POSITION, CALL LIGHT WITHIN REACH, ALL NEEDS MET. REPORT TO ONCOMING NURSE.
--- NOTE | 2024-02-17 19:36 | NUR ---
DAY SHIFT SUMMARY: A&Ox4. PLEASANT AND COOPERATIVE WITH CARE. CALLS APPROPRIATELY AND IS ABLE TO ADVOCATE NEEDS EFFECTIVELY. C / O SENSATION TO NEED TO STOOL BUT HAS NOT YIELDED OUTPUT. BILATERAL NEPHROSTOMIES PATENT AND DRAINING TO GRAVITY. AMBULATES INDEPENDENTLY WITHIN ROOM. MEDS WHOLE WITH FLUIDS. BILATERAL FLANK PAIN AND C / O GENERALIZED MALAISE, LIKELY RELATED TO INFx. URINE Cx PENDING. VSS WITH EXCEPTION OF LOW-GRADE FEVER. IR TO BEDSIDE TODAY TO PLACE NEPHROSTOMY TUBES. SIGNIFICANT IMPROVEMENT IN PAIN ONCE DRAINING. VERY ANXIOUS REGARDING LINES. BED IN LOWEST POSITION, CALL LIGHT WITHIN REACH, ALL NEEDS MET. REPORT TO ONCOMING NURSE.
[2024-02-17 20:23] VITALS: BP 130/77
[2024-02-18 02:14] VITALS: BP 117/58
--- NOTE | 2024-02-18 04:09 | NUR ---
SHIFT SUMMARY ADMITTED FOR JONNY/UTI. FULL CODE. BILATERAL NEPHROSTOMIES PATENT AND IN PLACE DRAINING URINE. SHE IS A&O X3-4, HIGHLY ANXIOUS THROUGHOUT SHIFT. PAIN MEDICATION GIVEN, PAIN WHICH SHE STATES IS "EVERYWHERE". ON RA. 1 ASSIST DUE TO LINES AND TUBES. IV ANTIB ARE SCHEDULED. REGULAR DIET.
[2024-02-18 05:35] LABS: BASOPHILS ABSOLUTE AUTO 0.05 K/mm3 (0.00-0.23); BASOPHILS PERCENT AUTO 1 % (0-2); EOSINOPHILS ABSOLUTE AUTO 0.16 K/mm3 (0.00-0.68); EOSINOPHILS PERCENT AUTO 2 % (0-6); Hematocrit 29.9 % (33.0-51.0); Hemoglobin 9.7 g/dL (11.5-16.0); IMMATURE GRAN ABSOLUTE AUTO 0.04 K/mm3 (0.00-0.10); IMMATURE GRAN PERCENT AUTO 0 % (0-1); LYMPHOCYTES ABSOLUTE AUTO 0.89 K/mm3 (0.84-5.20); LYMPHOCYTES PERCENT AUTO 9 % (21-46); MONOCYTES ABSOLUTE AUTO 0.82 K/mm3 (0.16-1.47); MONOCYTES PERCENT AUTO 8 % (4-13); Mean Corpuscular HGB 28.3 pg (26.0-34.0); Mean Corpuscular HGB Conc 32.4 g/dL (31.5-36.5); Mean Corpuscular Volume 87 fL (80-100); Mean Platelet Volume 10.5 fL (9.1-12.4); NEUTROPHILS ABSOLUTE AUTO 8.01 K/mm3 (1.96-9.15); NEUTROPHILS PERCENT AUTO 80 % (41-73); Platelet Count 352 K/mm3 (150-400); RDW Coefficient Variation 14.7 % (11.7-14.2); RDW Standard Deviation 46.8 fL (35.1-46.3); Red Blood Cell Count 3.43 M/mm3 (3.80-5.20); White Blood Cell Count 9.97 K/mm3 (4.00-11.30)
[2024-02-18 06:13] LABS: Albumin, Blood 2.2 g/dL (3.4-5.0); Albumin/Globulin Ratio 0.5 (0.8-1.8); Bilirubin, Total 0.4 mg/dL (0.1-1.0); Bun/Creatinine Ratio 17.7 (12.0-20.0); Calcium, Blood 8.6 mg/dL (8.5-10.1); Creatinine, Blood 1.75 mg/dL (0.40-1.00); Globulin, Blood 4.5 g/dL (2.2-4.0); Potassium, Blood 3.9 mmol/L (3.5-5.5); Total Protein, Blood 6.7 g/dL (6.4-8.2)
[2024-02-18 07:48] VITALS: BP 112/62
--- NOTE | 2024-02-18 14:05 | NUR ---
DR BACH TO BEDSIDE.
--- NOTE | 2024-02-18 14:11 | NUR ---
"Spiritual Care | Pt. request Pt. is awake and sitting up in a chair when I visit her room, The Pt. welcomes my visit. Facilitated a review of the Pts. experience since her last discharge in October. Listen with empathy and a calming spirit. When Dr. Delgado came to give a report to Pt. and spouse this qm nurse excused himself to a better time. Pt. verbalized gratitude for the spiritual care visit."
[2024-02-18 15:38] VITALS: BP 118/63
--- NOTE | 2024-02-18 19:23 | NUR ---
END OF SHIFT SUMMARY: A&Ox4. PLEASANT AND COOPERATIVE WITH CARE. CALLS APPROPRIATELY AND IS ABLE TO ADVOCATE NEEDS EFFECTIVELY. INDEPENDENT WITH AMBULATION. CONTINENT OF BOWEL AND BLADDER. C/O CONSTIPATION; COMPLIANCE ADVISOR TO OFFER BROWN COW. MEDS WHOLE WITH FLUIDS. C/O PAIN AND ACHINESS THIS MORNING; APAP AND OXYCODONE ADMINISTERED FOR LOW-GRADE FEVER WHICH SEEMED TO HELP WITH ACHING. DR BACH TO BEDSIDE FOR CONSULT: URETERAL STENT FAILURE; SHE WILL FOLLOW-UP WITH DR. PACHECO FOR MANAGEMENT OF STENTS. LIKELY TO DC TOMORROW. BED IN LOWEST POSITION, CALL LIGHT WITHIN REACH, ALL NEEDS MET. REPORT TO ONCOMING NURSE.
--- NOTE | 2024-02-18 20:06 | NUR ---
NEW ORDER RECE[facility]PL[facility] OFFICERMINDI: - MIRALAX 17GM PO 1 PACKED DAILY AND -MIRALAX 17GM PO ONE PACKET NOW. ENTERED TO [employer], SEE EMAR. NO ADDITIONAL NEW ORDERS AT THIS TIME.
[2024-02-18] MEDS ORDERED: Polyethylene Glycol 3350 17 gm PO ONE (20:10)
[2024-02-18 20:17] VITALS: BP 131/80
[2024-02-19] MEDS ORDERED: NS 250 ML IV PRN (01:50)
[2024-02-19 02:35] VITALS: BP 116/69
--- NOTE | 2024-02-19 03:00 | NUR ---
SHIFT SUMMARY PT APPEARS ANXIOUS AND C/O CONSTIPATED AT HS. PT REPORTS DAY #7 W/O BM. NEW ORDER FOR MIRALAX ADMINISTERED ORDERED. ENCOURAGED PT TO AMBULATE. PT WALKED AROUND THE UNIT ONCE DURING THIS SHIFT. PT REPORTS HAVING A SMALL BM. PT C/O NOT ABLE TO SIT OR LAY DOWN IN BED D/T CONSTIPATION. OFFERED BROWN COW, PT REFUSED. AT HS PT REFUSED HEPARIN AND PROBIOTIC. C/O 710 FLANK PAIN BILATERALLY, PRN OXYCODONE EFFECTIVE PER PT REPORT. NEPHROSTOMY BAGS EMPTIED Q2-3 HRS. DRAINING YELLOW COLOR URINE. PT ABLE TO ADVOCATE FOR HERSELF. NO OTHER COMPLAINTS OFFERED. CALL LIGHT WITHIN REACH. PT AWAKE T/O THIS SHIFT. USED EMPATHY AND ACTIVE LISTENING D/T PT'S ANXIETY. CONTINUING PT EDUCATION R/T DISEASE PROCESS.
[2024-02-19 05:22] LABS: BASOPHILS ABSOLUTE AUTO 0.04 K/mm3 (0.00-0.23); BASOPHILS PERCENT AUTO 1 % (0-2); EOSINOPHILS ABSOLUTE AUTO 0.13 K/mm3 (0.00-0.68); EOSINOPHILS PERCENT AUTO 2 % (0-6); Hematocrit 27.7 % (33.0-51.0); Hemoglobin 9.1 g/dL (11.5-16.0); IMMATURE GRAN ABSOLUTE AUTO 0.03 K/mm3 (0.00-0.10); IMMATURE GRAN PERCENT AUTO 0 % (0-1); LYMPHOCYTES PERCENT AUTO 13 % (21-46); MONOCYTES PERCENT AUTO 9 % (4-13); Mean Corpuscular HGB 28.4 pg (26.0-34.0); Mean Corpuscular HGB Conc 32.9 g/dL (31.5-36.5); Mean Corpuscular Volume 87 fL (80-100); Mean Platelet Volume 10.3 fL (9.1-12.4); NEUTROPHILS PERCENT AUTO 76 % (41-73); Platelet Count 356 K/mm3 (150-400); RDW Coefficient Variation 14.6 % (11.7-14.2); RDW Standard Deviation 46.6 fL (35.1-46.3)
[2024-02-19 05:28] LABS: Albumin, Blood 2.2 g/dL (3.4-5.0); Albumin/Globulin Ratio 0.5 (0.8-1.8); Bilirubin, Total 0.3 mg/dL (0.1-1.0); Bun/Creatinine Ratio 20.9 (12.0-20.0); Calcium, Blood 8.6 mg/dL (8.5-10.1); Creatinine, Blood 0.96 mg/dL (0.40-1.00); Globulin, Blood 4.3 g/dL (2.2-4.0); Total Protein, Blood 6.5 g/dL (6.4-8.2)
[2024-02-19 08:32] VITALS: BP 127/72
[2024-02-19] MEDS ORDERED: Polyethylene Glycol 3350 17 gm PO SCH (09:00)
--- NOTE | 2024-02-19 14:01 | NUR ---
DISCHARGE NOTE PATIENT DISCHARGED HOME. PICKED UP PATIENT. IV REMOVED. BELONGINGS RETURNED. NO HOME MEDS TO RETURN. DISCHRGE PACKET REVIEWED AND PATIENT HAD NO QUESTIONS OR CONCERNS. NO NEW MEDICATIONS.
== END 2024-02-19 14:29 | disposition home or self-care (01) | DRG 698 ==
LOC: ER 14:57 → MEDS 14:58 → ERHOLD 14:58 → MEDS 20:34
PROVIDERS: Emergency Medicine; Internal Medicine; ADMIT Student in an Organized Health Care Education/Training Program
DX: T83.512A Infection and inflammatory reaction due to nephrostomy catheter, initial encounter (principal); K68.3 Retroperitoneal hematoma; E87.1 Hypo-osmolality and hyponatremia; N17.9 Acute kidney failure, unspecified; N13.6 Pyonephrosis; E78.5 Hyperlipidemia, unspecified; F17.210 Nicotine dependence, cigarettes, uncomplicated; I12.9 Hypertensive chronic kidney disease with stage 1 through stage 4 chronic kidney disease, or unspecified chronic kidney disease; N18.30 Chronic kidney disease, stage 3 unspecified; D63.1 Anemia in chronic kidney disease; Y83.8 Other surgical procedures as the cause of abnormal reaction of the patient, or of later complication, without mention of misadventure at the time of the procedure; R33.9 Retention of urine, unspecified; Z79.899 Other long term (current) drug therapy; Z79.891 Long term (current) use of opiate analgesic; Z87.442 Personal history of urinary calculi; Z86.79 Personal history of other diseases of the circulatory system; Z98.890 Other specified postprocedural states; Z79.2 Long term (current) use of antibiotics; Z87.448 Personal history of other diseases of urinary system
CPT/HCPCS: 36415; 51798; 74176; 80048; 80053; 81001; 83735; 84100; 85025; 87086; 94762; 96361; 96365; 96375; 96376; 99284-25; A9270; G0378; J0692; J0696; J1171; J1644; J3010; J7030; J7050

== ENCOUNTER 2024-04-22 15:21 | Inpatient (IN) | payer OTHER ==
[~2024-04-22] VITALS: Ht 170.2 cm; Wt 69.3 kg
[~2024-04-22 15:21] MED LIST changes: +OXYC10TA19 PO
[2024-04-22 16:06] LABS: BASOPHILS PERCENT AUTO 1 % (0-2); EOSINOPHILS ABSOLUTE AUTO 0.16 K/mm3 (0.00-0.68); EOSINOPHILS PERCENT AUTO 2 % (0-6); Hemoglobin 11.9 g/dL (11.5-16.0); IMMATURE GRAN ABSOLUTE AUTO 0.03 K/mm3 (0.00-0.10); IMMATURE GRAN PERCENT AUTO 0 % (0-1); LYMPHOCYTES ABSOLUTE AUTO 1.04 K/mm3 (0.84-5.20); LYMPHOCYTES PERCENT AUTO 11 % (21-46); MONOCYTES ABSOLUTE AUTO 0.93 K/mm3 (0.16-1.47); MONOCYTES PERCENT AUTO 10 % (4-13); Mean Corpuscular HGB 26.9 pg (26.0-34.0); Mean Corpuscular HGB Conc 31.3 g/dL (31.5-36.5); Mean Corpuscular Volume 86 fL (80-100); Mean Platelet Volume 10.9 fL (9.1-12.4); NEUTROPHILS ABSOLUTE AUTO 7.11 K/mm3 (1.96-9.15); NEUTROPHILS PERCENT AUTO 76 % (41-73); Platelet Count 310 K/mm3 (150-400); RDW Coefficient Variation 15.3 % (11.7-14.2); RDW Standard Deviation 48.3 fL (35.1-46.3); Red Blood Cell Count 4.43 M/mm3 (3.80-5.20); White Blood Cell Count 9.37 K/mm3 (4.00-11.30)
[2024-04-22 16:38] LABS: Albumin, Blood 3.4 g/dL (3.4-5.0); Albumin/Globulin Ratio 0.7 (0.8-1.8); Bilirubin, Total 0.2 mg/dL (0.1-1.0); Bun/Creatinine Ratio 13.8 (12.0-20.0); Calcium, Blood 9.8 mg/dL (8.5-10.1); Creatinine, Blood 1.67 mg/dL (0.40-1.00); Globulin, Blood 4.9 g/dL (2.2-4.0); Potassium, Blood 3.9 mmol/L (3.5-5.5); Total Protein, Blood 8.3 g/dL (6.4-8.2)
[2024-04-22] MEDS ORDERED: FentaNYL Citrate 50 MCG/ML 2 ML Injection IV ONE (19:00)
[2024-04-22 19:33] LABS: Source, Urine Nephrostomy
[2024-04-22 19:39] LABS: Appearance, Urine Hazy (Clear); Bilirubin, Urine Neg (Neg); Blood, Urine 5+ (Neg); Color, Urine Yellow (P-Yellow); Glucose Qualitative, Urine Neg (Neg); Ketones, Urine Neg (Neg); Leukocyte Esterase, Urine 3+ (Neg); Nitrite, Urine Neg (Neg); Protein, Urine 3+ (Neg); Urobilinogen, Urine NORM (Normal)
[2024-04-22 19:49] LABS: Amorphous Mod (0-Heavy); Bacteria Many /hpf; Squamous Epithelial Cells Few /hpf (Few)
[2024-04-22] MEDS ORDERED: FLU VACC TS2024-25(6MOS UP)/PF 45 MCG/0.5 ML SYRINGE IM SCH (20:20)
[2024-04-22] MEDS ORDERED: Naloxone HCl 0.4MG / ML 1ML Vial IV PRN (20:20)
[2024-04-22] MEDS ORDERED: FentaNYL Citrate 50 MCG/ML 2 ML Injection IV PRN (20:20)
[2024-04-22] MEDS ORDERED: Ondansetron HCl 2 MG / ML 2ML Vial IV PRN (20:20)
[2024-04-22] MEDS ORDERED: Acetaminophen 325 MG TABLET PO PRN (20:25)
[2024-04-22 22:33] VITALS: BP 154/96
[2024-04-23 05:30] VITALS: BP 146/81
--- NOTE | 2024-04-23 05:34 | NUR ---
SHIFT SUMMARY PT ADMITTED LAST EVENING WITH RIGHT NEPHROSTOMY OCCLUSION. LEFT NEPHOSTOMY DRAINING YELLOW URINE. RIGHT NEPHROSTOMY NOT DRAINING- SITE CURRENTLY DRY. PT MEDICATED FOR BACK PAIN PER EMAR. PT IS NPO FOR PROCEDURE TODAY. PT UP IN ROOM INDEPENDENTLY. CALL LIGHT WITHIN REACH, SIDERAILS UP X2
[2024-04-23 05:49] LABS: BASOPHILS PERCENT AUTO 1 % (0-2); EOSINOPHILS ABSOLUTE AUTO 0.12 K/mm3 (0.00-0.68); EOSINOPHILS PERCENT AUTO 1 % (0-6); Hematocrit 34.3 % (33.0-51.0); IMMATURE GRAN ABSOLUTE AUTO 0.03 K/mm3 (0.00-0.10); IMMATURE GRAN PERCENT AUTO 0 % (0-1); LYMPHOCYTES ABSOLUTE AUTO 0.96 K/mm3 (0.84-5.20); LYMPHOCYTES PERCENT AUTO 10 % (21-46); MONOCYTES ABSOLUTE AUTO 0.98 K/mm3 (0.16-1.47); MONOCYTES PERCENT AUTO 10 % (4-13); Mean Corpuscular HGB 27.2 pg (26.0-34.0); Mean Corpuscular HGB Conc 32.1 g/dL (31.5-36.5); Mean Corpuscular Volume 85 fL (80-100); Mean Platelet Volume 11.2 fL (9.1-12.4); NEUTROPHILS ABSOLUTE AUTO 7.58 K/mm3 (1.96-9.15); NEUTROPHILS PERCENT AUTO 78 % (41-73); Platelet Count 261 K/mm3 (150-400); RDW Coefficient Variation 15.6 % (11.7-14.2); RDW Standard Deviation 47.6 fL (35.1-46.3); Red Blood Cell Count 4.05 M/mm3 (3.80-5.20); White Blood Cell Count 9.77 K/mm3 (4.00-11.30)
[2024-04-23 06:21] LABS: Albumin/Globulin Ratio 0.7 (0.8-1.8); Bilirubin, Total 0.4 mg/dL (0.1-1.0); Bun/Creatinine Ratio 10.6 (12.0-20.0); Calcium, Blood 9.3 mg/dL (8.5-10.1); Creatinine, Blood 2.83 mg/dL (0.40-1.00); Globulin, Blood 4.2 g/dL (2.2-4.0); Magnesium, Blood 2.2 mg/dL (1.6-2.4); Potassium, Blood 4.1 mmol/L (3.5-5.5); Total Protein, Blood 7.2 g/dL (6.4-8.2)
[2024-04-23 08:01] VITALS: BP 127/73
[2024-04-23] MEDS ORDERED: Lactated Ringer's 1,000 ML IV SCH (09:40)
--- NOTE | 2024-04-23 11:24 | NUR ---
"Spiritual care | Pt. request Pt. is sitting up in her bed when she welcomes my visit. Pt. is known to this surfboard designer from previous visits to this hospital. Pt. is very unsettled about not having any water since the previous afternoon (19 hrs), and no word from a doctor today when she had been told there would be a procedure. Listen with empathy and a calming presence and seek to normalize the Pt. experience. Prayed with Pt. The Pt. verbalized gratitude for the spiritual care visit. Will continue to be available to the Pt."
[2024-04-23] MEDS ORDERED: NS 250 ML IV ONE ×2 (13:36→13:51)
[2024-04-23] MEDS ORDERED: FentaNYL Citrate 50 MCG/ML 2 ML Injection ONE (13:50)
[2024-04-23] MEDS ORDERED: Midazolam HCl 1MG / ML 2ML Vial ONE (13:50)
[2024-04-23 15:15] VITALS: BP 152/83
--- NOTE | 2024-04-23 18:16 | NUR ---
SHIFT SUMMARY PT A&OX4, VSS, AMB IND, TOLERATING PO, VOIDING, AND DENIED PAIN. PT HAD PROCEDURE FOR OCCLUDED NEPHROSTOMY. NEPHROSTOMIES NOW LEAKING, BUT PATENT. LR CONT TO INFUSE PER ORDER. NO OTHER ACUTE CHANGES. CALL LIGHT WITHIN REACH AND PT ABLE TO MAKE NEEDS KNOWN.
[2024-04-23 19:16] VITALS: BP 158/77
[2024-04-23] MEDS ORDERED: HYDROmorphone HCl/Pf 1MG SYR IV PRN (22:35)
[2024-04-24 03:59] VITALS: BP 127/68
[2024-04-24 05:51] LABS: BASOPHILS ABSOLUTE AUTO 0.07 K/mm3 (0.00-0.23); BASOPHILS PERCENT AUTO 1 % (0-2); EOSINOPHILS ABSOLUTE AUTO 0.07 K/mm3 (0.00-0.68); EOSINOPHILS PERCENT AUTO 1 % (0-6); Hematocrit 32.3 % (33.0-51.0); Hemoglobin 10.3 g/dL (11.5-16.0); IMMATURE GRAN ABSOLUTE AUTO 0.03 K/mm3 (0.00-0.10); IMMATURE GRAN PERCENT AUTO 0 % (0-1); LYMPHOCYTES ABSOLUTE AUTO 0.39 K/mm3 (0.84-5.20); LYMPHOCYTES PERCENT AUTO 5 % (21-46); MONOCYTES ABSOLUTE AUTO 0.77 K/mm3 (0.16-1.47); MONOCYTES PERCENT AUTO 9 % (4-13); Mean Corpuscular HGB 27.1 pg (26.0-34.0); Mean Corpuscular HGB Conc 31.9 g/dL (31.5-36.5); Mean Corpuscular Volume 85 fL (80-100); Mean Platelet Volume 11.6 fL (9.1-12.4); NEUTROPHILS ABSOLUTE AUTO 6.97 K/mm3 (1.96-9.15); NEUTROPHILS PERCENT AUTO 84 % (41-73); Platelet Count 227 K/mm3 (150-400); RDW Coefficient Variation 15.8 % (11.7-14.2); RDW Standard Deviation 48.5 fL (35.1-46.3)
[2024-04-24 06:26] LABS: Bun/Creatinine Ratio 14.7 (12.0-20.0); Calcium, Blood 8.6 mg/dL (8.5-10.1); Creatinine, Blood 2.32 mg/dL (0.40-1.00); Potassium, Blood 3.7 mmol/L (3.5-5.5)
--- NOTE | 2024-04-24 06:28 | NUR ---
SHIFT SUMMARY PT C/O PAIN TO RIGHT NEPHROSTOMY TUBE SITE, WELL CHRONIC BACK PAIN. MEDICATED WITH FENTANYL AND DILAUDID PER EMAR. PT STATES SHE DID NOT LIKE THE WAY THE DILAUDID MADE HER FEEL, AND RELUCTANT TO TAKE PAIN MEDS THIS AM WHILE C/O PAIN THAT IS TOO INTENSE TO ALLOW HER TO MOVE. PT AGREED TO TAKE FENTANYL. PT SLEPT INTERMITTENTLY DURING THE NIGHT. NEPHROSTOMIES DRAINING WITHOUT ISSUE, THE RIGHT GREATER THAN THE LEFT. PT WITH OCCASSIONAL SMALL AMOUNT OF LEAKING TO THE RIGHT NEPHROSTOMY SITE WHEN MOVING, BUT PT REFUSED ADDITIONAL DRESSING. PT CURRENTLY SITTING IN CHAIR WITH CALL LIGHT WITHIN REACH.
[2024-04-24 07:11] VITALS: BP 130/80
[2024-04-24] MEDS ORDERED: CefTRIAXone Sodium 1,000 MG in NS 100 ML IV SCH (15:29)
[2024-04-24 15:34] VITALS: BP 158/87
[2024-04-24] MEDS ORDERED: OxyCODONE HCL 5 MG TAB PO PRN (16:00)
--- NOTE | 2024-04-24 16:15 | NUR ---
PT COMPLAINING OF PAIN TO THE R SIDE NEPHROSTOMY TUBE SITE, DRESSING IS PEELING UP, DRESSING REMOVED, AREA CLEANSED WITH CHLORHEXIDINE, SMALL AMOUNT OF PURULENT DRAINAGE AT THE SITE, NEW DRESSING APPLIED, PT BUD WELL, SHE STATES IT "FEELS BETTER ALREADY", WILL CONT TO MONITOR
--- NOTE | 2024-04-24 16:48 | NUR ---
Pt. is walkingin the hallway when she welcomed my visit. Pt. is pleasant but moves cautioiusly with her walker. Once situated in her bed the Pt. verbalizes details about her procedure the previous day, and the pain that ensued, Pt. also verbalised prais efor the charge nurse that was able to assist her by re-bandaging her back. Listened with empathy, and a calming presence. Pt. displayed evidence of being hopeful and continues to verbalize trust that God can bring her a healing miracle. Pt. is unsettled by a new deeper pain that she can't explain. Pt. verbalized a desire to know what specifically took place in her procedure yesterday. Prayed with Pt. Pt. verbalized gratitude for the spiritual care visits.
--- NOTE | 2024-04-24 16:52 | NUR ---
PT C/O L NEPH TUBE BEING PAINFUL, DRESSING CHANGED, SITE CLEANED, PT BUD WELL
--- NOTE | 2024-04-24 18:13 | NUR ---
NO ACUTE CHANGES, NEPHROSTOMY DRESSINGS CHANGED, NO IV NEEDED DUE TO PATIENT ANXIETY ABOUT NEEDLES, AMBULATED IN THE HALLS, MEDICATED WITH OXY, PATIENT DENIES NEED FOR ANXIETY MEDICATION, ENCOURAGE PO FLUID INTAKE, CALL LIGHT WITH IN REACH, WILL RELAY TO PM RN
[2024-04-24 19:22] VITALS: BP 149/84
[2024-04-24] MEDS ORDERED: LevoFLOXacin 750 MG Tab PO SCH (21:00)
[2024-04-24] MEDS ORDERED: Lactobacil 2-S.Thermo-Bifido 1 1 Cap PO SCH (21:00)
--- NOTE | 2024-04-24 21:19 | NUR ---
Pt alert/ oriented. vital signs completed. pt reports having discomfort where her newly placed nephrostomy tubes are located; RN advised. repositioned pt and provided ice water.
[2024-04-25 03:15] VITALS: BP 125/68
--- NOTE | 2024-04-25 04:09 | NUR ---
SHIFT SUMMARY PATIENT HAD NO ACUTE CHANGES. AOX 4 AND INDEPENDENT IN ROOM. NO IV ACCESS. DENIES CHEST PAIN, SOB, AND N/V. REPORTED BACK FLANK PAIN X ONE AND OXYCODONE 5 MG GIVEN PER EMAR. LOW GRADE TEMP 99.7. LEFT/ RIGHT NEPHROSTOMY TUBES INTACT DRAINING . ANXIOUS T/O SHIFT. CALL LIGHT IN REACH. BED IN LOWEST POSITION. WILL CONTINUE TO MONITOR UNTIL DAY SHIFT NURSE ASSUMES CARE.
[2024-04-25 06:53] LABS: Bun/Creatinine Ratio 16.5 (12.0-20.0); Calcium, Blood 9.1 mg/dL (8.5-10.1); Creatinine, Blood 1.64 mg/dL (0.40-1.00); Potassium, Blood 3.6 mmol/L (3.5-5.5)
[2024-04-25 07:17] VITALS: BP 143/89
[2024-04-25] MEDS ORDERED: Trimethoprim/Sulfamethoxazole DS Tab PO ONE (12:55)
[2024-04-25] MEDS ORDERED: Acetaminophen650 M1 PO (13:37)
[2024-04-25] MEDS ORDERED: VISBIOME 112.51 EACH PO (13:39)
[2024-04-25] MEDS ORDERED: SULTRIDS PO (13:39)
--- NOTE | 2024-04-25 15:02 | NUR ---
DISCHARGE HOME 1403, ACCOMPANIED, BOTH STATED UNDERSTANDING OF MEDICATION AND FOLLOW UP NEEDS, BOTH DENIED FURTHER QUESTIONS, LEFT VIA W/C
== END 2024-04-25 14:02 | disposition home or self-care (01) | DRG 699 ==
LOC: ER 15:21 → MEDS 15:22
PROVIDERS: Family Medicine; Student in an Organized Health Care Education/Training Program; ADMIT Student in an Organized Health Care Education/Training Program
PROC: 0T25X0Z Change Drainage Device in Kidney, External Approach (ICD-10-PCS; principal; 2024-04-23)
DX: N99.522 Malfunction of incontinent external stoma of urinary tract (principal); N17.9 Acute kidney failure, unspecified; N39.0 Urinary tract infection, site not specified; I12.9 Hypertensive chronic kidney disease with stage 1 through stage 4 chronic kidney disease, or unspecified chronic kidney disease; N18.32 Chronic kidney disease, stage 3b; D63.1 Anemia in chronic kidney disease; Y83.9 Surgical procedure, unspecified as the cause of abnormal reaction of the patient, or of later complication, without mention of misadventure at the time of the procedure; B96.89 Other specified bacterial agents as the cause of diseases classified elsewhere; E78.5 Hyperlipidemia, unspecified; Z87.442 Personal history of urinary calculi; Z86.79 Personal history of other diseases of the circulatory system; Z98.890 Other specified postprocedural states; Z79.899 Other long term (current) drug therapy; Z79.891 Long term (current) use of opiate analgesic
CPT/HCPCS: 36415; 50435; 74177; 76770; 80048; 80053; 81001; 83735; 85025; 87077; 87086; 87186; 94762; 96374-59; 96375; 96376; 99152; 99285-25; A9270; C1729; C1769; G0378; J1171; J2250; J3010; J7050; J7120; Q9967

== ENCOUNTER 2024-05-02 07:29 | Inpatient (IN) | payer OTHER ==
[~2024-05-02] VITALS: Ht 170.2 cm; Wt 68.0 kg
[~2024-05-02 07:29] MED LIST changes: +Acetaminophen650 M1 PO; +SULTRIDS PO; +VISBIOME 112.51 EACH PO
[2024-05-02 08:08] LABS: BASOPHILS ABSOLUTE AUTO 0.11 K/mm3 (0.00-0.23); BASOPHILS PERCENT AUTO 1 % (0-2); EOSINOPHILS ABSOLUTE AUTO 0.18 K/mm3 (0.00-0.68); EOSINOPHILS PERCENT AUTO 2 % (0-6); Hematocrit 39.1 % (33.0-51.0); Hemoglobin 11.7 g/dL (11.5-16.0); IMMATURE GRAN ABSOLUTE AUTO 0.04 K/mm3 (0.00-0.10); IMMATURE GRAN PERCENT AUTO 0 % (0-1); LYMPHOCYTES ABSOLUTE AUTO 1.72 K/mm3 (0.84-5.20); LYMPHOCYTES PERCENT AUTO 17 % (21-46); MONOCYTES ABSOLUTE AUTO 0.99 K/mm3 (0.16-1.47); MONOCYTES PERCENT AUTO 10 % (4-13); Mean Corpuscular HGB 26.7 pg (26.0-34.0); Mean Corpuscular HGB Conc 29.9 g/dL (31.5-36.5); Mean Corpuscular Volume 89 fL (80-100); Mean Platelet Volume 10.4 fL (9.1-12.4); NEUTROPHILS ABSOLUTE AUTO 7.38 K/mm3 (1.96-9.15); NEUTROPHILS PERCENT AUTO 71 % (41-73); Platelet Count 380 K/mm3 (150-400); RDW Coefficient Variation 16.1 % (11.7-14.2); RDW Standard Deviation 52.9 fL (35.1-46.3); Red Blood Cell Count 4.39 M/mm3 (3.80-5.20); White Blood Cell Count 10.42 K/mm3 (4.00-11.30)
[2024-05-02 09:14] LABS: Albumin, Blood 3.2 g/dL (3.4-5.0); Albumin/Globulin Ratio 0.7 (0.8-1.8); Bilirubin, Total 0.2 mg/dL (0.1-1.0); Bun/Creatinine Ratio 14.7 (12.0-20.0); Calcium, Blood 9.5 mg/dL (8.5-10.1); Creatinine, Blood 1.09 mg/dL (0.40-1.00); Globulin, Blood 4.5 g/dL (2.2-4.0); Potassium, Blood 3.8 mmol/L (3.5-5.5); Total Protein, Blood 7.7 g/dL (6.4-8.2)
[2024-05-02] MEDS ORDERED: Aspirin 81 MG Chew PO ONE (09:45)
[2024-05-02] MEDS ORDERED: Atorvastatin 40 MG Tab PO SCH (12:00)
[2024-05-02] MEDS ORDERED: Carvedilol 3.125 MG Tab PO SCH (12:00)
[2024-05-02] MEDS ORDERED: FLU VACC TS2024-25(6MOS UP)/PF 45 MCG/0.5 ML SYRINGE IM SCH (12:25)
[2024-05-02] MEDS ORDERED: Clopidogrel Bisulfate 75 MG Tab PO SCH (13:00)
[2024-05-02 13:51] LABS: Anti-Xa UFH, PHA Monitoring <0.10 IU/mL; International Normalized Ratio 1.02; Prothrombin Time Results 10.9 Sec (9.7-11.5)
[2024-05-02] MEDS ORDERED: Dose Adjust by Pharmacy XX STA ×2 (14:08→22:46)
[2024-05-02] MEDS ORDERED: Heparin Sodium,Porcine/0.5 NS 500 ML IV SCH (14:10)
[2024-05-02 15:12] VITALS: BP 152/914
[2024-05-02 16:58] VITALS: BP 141/86
[2024-05-02] MEDS ORDERED: Trimethoprim/Sulfamethoxazole DS Tab PO SCH (17:05)
--- NOTE | 2024-05-02 17:56 | NUR ---
PT ARRIVED IN THE UNIT ABLE TO STAND AND TRANSFER TO PCU BED, PT INDEPENDENT AT BASELINE. PT NIECE AT THE BEDSIDE UPON ARRIVAL. PT ALERT AND ORIENTED, VERY ANXIOUS BEING IN THE HOSPITAL. VITALS HRR SR 70'S, SBP 140-150'S, SATS ABOVE 95% ON RA, AFEBRILE. PT REPORTED BEING EVERYDAY SMOKER, REFUSED NICOTINE PATCH AT THIS TIME. PT HAS BILATERAL NEPHROSTOMY TUBE IN PLACE DRAINING CLEAR YELLOW URINE. PT HAS BEEN CHEST PAIN FREE SINCE ARRIVAL, PT STARTED ON HEP GTT AT 15U/KG/HR. ECHO WAS DONE. DR MORROW ABLE TO SEE PT IN THE ER PRIOR TO ARRIVAL IN THE UNIT PER FAMILY MEMBER NO SURGICAL INTERVENTION AT THIS TIME, WILL DO MEDICAL MANAGEMENT. PT HAS BEEN RESTLESS IN BED, PT REPORTS NOT HAVING ANY SLEEP FOR THE LAST 27 HRS PT DENIES NEED FOR SLEEPING AIDS FOR TONIGHT. PT HAS BEEN UP IN THE CHAIR SINCE THEN. NO OTHER ISSUES REPORTED FOR THE SHIFT, CALL LIGHTS IN REACH WILL REPORT TO ONCOMING SHIFT
[2024-05-02 19:45] VITALS: BP 116/74
[2024-05-02] MEDS ORDERED: AmLODIPine Besylate 5 MG Tab PO SCH (21:00)
[2024-05-02] MEDS ORDERED: Heparin Sodium 5000 Units/ML 1ML MDV IV ONE (22:50)
[2024-05-03 00:24] VITALS: BP 115/62
[2024-05-03 03:48] VITALS: BP 113/77
--- NOTE | 2024-05-03 04:42 | NUR ---
NOC SHIFT SUMMARY NO ACUTE EVENTS OVERNIGHT. PT REMAINS AOX4 AND IS COOPERATIVE W/ CARE. THERAPEUTIC COMMUNICATION PROVIDED TO PT W/ GOOD EFFECT. PT VERBALIZED DECREASED ANXIETY. PT SLEPT FOR MOST OF SHIFT, WAS UP TO CHAIR FOR A PERIOD AND RETURNED TO BED. LINE ASSIST PROVIDED. PT LUNG SOUNDS REMAIN DIM, ON ROOM AIR W/ ADEQUATE SATURATIONS. NSR ON TELE, RATE OF 60-70S. BP STABLE. NO BM THIS SHIFT. GOOD OUTPUT VIA NEPHROSTOMY TUBES. PT AFEBRILE. CALL LIGHT W/ IN REACH. PLAN OF CARE ONGOING.
[2024-05-03 05:04] LABS: BASOPHILS ABSOLUTE AUTO 0.11 K/mm3 (0.00-0.23); BASOPHILS PERCENT AUTO 1 % (0-2); EOSINOPHILS PERCENT AUTO 5 % (0-6); Hematocrit 34.1 % (33.0-51.0); Hemoglobin 10.7 g/dL (11.5-16.0); IMMATURE GRAN ABSOLUTE AUTO 0.03 K/mm3 (0.00-0.10); IMMATURE GRAN PERCENT AUTO 0 % (0-1); LYMPHOCYTES ABSOLUTE AUTO 2.28 K/mm3 (0.84-5.20); LYMPHOCYTES PERCENT AUTO 28 % (21-46); MONOCYTES ABSOLUTE AUTO 0.75 K/mm3 (0.16-1.47); MONOCYTES PERCENT AUTO 9 % (4-13); Mean Corpuscular HGB 26.7 pg (26.0-34.0); Mean Corpuscular HGB Conc 31.4 g/dL (31.5-36.5); Mean Corpuscular Volume 85 fL (80-100); Mean Platelet Volume 10.5 fL (9.1-12.4); NEUTROPHILS ABSOLUTE AUTO 4.69 K/mm3 (1.96-9.15); NEUTROPHILS PERCENT AUTO 57 % (41-73); Platelet Count 364 K/mm3 (150-400); RDW Coefficient Variation 15.9 % (11.7-14.2); RDW Standard Deviation 49.2 fL (35.1-46.3); Red Blood Cell Count 4.01 M/mm3 (3.80-5.20); White Blood Cell Count 8.26 K/mm3 (4.00-11.30)
[2024-05-03 05:27] LABS: Albumin/Globulin Ratio 0.7 (0.8-1.8); Bilirubin, Total 0.3 mg/dL (0.1-1.0); Bun/Creatinine Ratio 13.9 (12.0-20.0); Creatinine, Blood 1.15 mg/dL (0.40-1.00); Globulin, Blood 4.2 g/dL (2.2-4.0); Phosphorus, Blood 3.1 mg/dL (2.5-4.9); Total Protein, Blood 7.2 g/dL (6.4-8.2)
[2024-05-03] MEDS ORDERED: Pantoprazole Sodium 20 MG Tab PO SCH (06:00)
[2024-05-03] MEDS ORDERED: Clarify Drug Order XX ONE (06:00)
[2024-05-03 08:19] VITALS: BP 125/84
[2024-05-03] MEDS ORDERED: Aspirin 81 MG TabEC PO SCH (09:00)
[2024-05-03 11:54] VITALS: BP 107/71
[2024-05-03 15:31] VITALS: BP 144/88
--- NOTE | 2024-05-03 17:30 | NUR ---
PT SUMMARY; HEPARIN GTT CONTINUOUSLY INFUSING AT 17U/KG/HR. PT INDEPENDENTLY EMPTYING NEPHROSTOMY AND WAS ABLE TO TELL THIS RN AMOUNT TO DOCUMENT. NO FURTHER ARM OR CHEST PAIN REPORTED. CAME IN TO VISIT TODAY WAS UPDATED ABOUT PT'S STATUS. TO POSSIBLY DC HOME TOMORROW AFTER 48 HRS LILIAN OG HEP GTT. VITALS HAS BEEN STABLE. PT HAS BEEN AMBULATING TO THE BATHROOM ASSISTED. WAS ABLE TO AMBULATE AROUND THE UNIT WITH THE AFTER LUNCH TIME. NO OTHER ISSUES REPORTED WILL REPORT TO ONCOMING SHIFT
[2024-05-04 03:22] LABS: BASOPHILS ABSOLUTE AUTO 0.09 K/mm3 (0.00-0.23); BASOPHILS PERCENT AUTO 1 % (0-2); EOSINOPHILS ABSOLUTE AUTO 0.36 K/mm3 (0.00-0.68); EOSINOPHILS PERCENT AUTO 5 % (0-6); Hematocrit 31.6 % (33.0-51.0); Hemoglobin 9.9 g/dL (11.5-16.0); IMMATURE GRAN ABSOLUTE AUTO 0.03 K/mm3 (0.00-0.10); IMMATURE GRAN PERCENT AUTO 0 % (0-1); LYMPHOCYTES ABSOLUTE AUTO 2.04 K/mm3 (0.84-5.20); LYMPHOCYTES PERCENT AUTO 26 % (21-46); MONOCYTES ABSOLUTE AUTO 1.03 K/mm3 (0.16-1.47); MONOCYTES PERCENT AUTO 13 % (4-13); Mean Corpuscular HGB Conc 31.3 g/dL (31.5-36.5); Mean Corpuscular Volume 86 fL (80-100); Mean Platelet Volume 10.4 fL (9.1-12.4); NEUTROPHILS PERCENT AUTO 55 % (41-73); Platelet Count 292 K/mm3 (150-400); RDW Coefficient Variation 15.9 % (11.7-14.2); RDW Standard Deviation 50.4 fL (35.1-46.3); Red Blood Cell Count 3.66 M/mm3 (3.80-5.20); White Blood Cell Count 7.95 K/mm3 (4.00-11.30)
[2024-05-04 03:37] LABS: Albumin, Blood 2.8 g/dL (3.4-5.0); Anion Gap 8 mmol/L (3-11); Blood Urea Nitrogen 15 mg/dL (8-24); Bun/Creatinine Ratio 12.6 (12.0-20.0); CO2, Blood 24 mmol/L (21-32); Calcium, Blood 8.9 mg/dL (8.5-10.1); Chloride, Blood 113 mmol/L (98-108); Creatinine, Blood 1.19 mg/dL (0.40-1.00); Glomerular Filtration Rate 52 (60-); Glucose, Blood 89 mg/dL (70-99); Phosphorus, Blood 3.3 mg/dL (2.5-4.9); Potassium, Blood 3.9 mmol/L (3.5-5.5); Sodium, Blood 141 mmol/L (136-145)
[2024-05-04] MEDS ORDERED: Clarify Drug Order XX ONE (03:50)
--- NOTE | 2024-05-04 06:44 | NUR ---
SHIFT SUMMARY PT HAS TOLERATED SHIFT WELL WITHOUT ANY COMPLICATION. PT HAS BEEN FREE OF CHEST PAIN THROUGHOUT NIGHT. PT IS AMBULATORY WITH SETUP AND HAS NO DEFICITS ON ASSESSMENT. PT IS HOPEFUL TO DISCHARGE HOME. WILL CONTINUE TO MONITOR UNTIL REPORT PASSED TO DAY SHIFT TEAM.
[2024-05-04 08:28] VITALS: BP 122/81
[2024-05-04 11:12] VITALS: BP 137/82
[2024-05-04] MEDS ORDERED: LIPITOR80 MG PO (14:09)
[2024-05-04] MEDS ORDERED: Aspir 8181 MG PO (14:10)
[2024-05-04] MEDS ORDERED: AMLODIPINE BES2.5 MG PO (14:10)
[2024-05-04] MEDS ORDERED: PANT20 PO (14:11)
[2024-05-04] MEDS ORDERED: CLOP75 PO (14:11)
[2024-05-04] MEDS ORDERED: CARV3.125 PO (14:11)
--- NOTE | 2024-05-04 15:50 | NUR ---
UPDATE PT REMAINS ALERT AND ORIENTED. BP STABLE. HR REMAINS NSR. PT DENIES ANY PAIN. DRESSINGS TO BILATERAL NEPHROSTOMY TUBES CHANGED THIS SHIFT. DISCHARGE INSTRUCTIONS PROVIDED TO PT. PT EDUCATED ON FOLLOW-UP AND MEDICATIONS. ALL QUESTIONS ANSWERED. PT TAKEN OUT VIA WC
== END 2024-05-04 15:20 | disposition home or self-care (01) | DRG 281 ==
LOC: ER 07:29 → PCU 12:21
PROVIDERS: Emergency Medicine; Internal Medicine Cardiovascular Disease; ADMIT Family Medicine
DX: I21.4 Non-ST elevation (NSTEMI) myocardial infarction (principal); N13.8 Other obstructive and reflux uropathy; E78.5 Hyperlipidemia, unspecified; I12.9 Hypertensive chronic kidney disease with stage 1 through stage 4 chronic kidney disease, or unspecified chronic kidney disease; J44.9 Chronic obstructive pulmonary disease, unspecified; N18.30 Chronic kidney disease, stage 3 unspecified; F17.210 Nicotine dependence, cigarettes, uncomplicated; M79.642 Pain in left hand; M79.641 Pain in right hand; Z93.6 Other artificial openings of urinary tract status; Z95.828 Presence of other vascular implants and grafts
CPT/HCPCS: 36415; 71046; 80053; 80069; 83735; 83880; 84100; 84484; 85025; 85520; 85610; 85730; 93005; 93010; 93306; 99284-25; A9270; J1644; J2470

== ENCOUNTER 2024-07-26 20:50 | Emergency (ER) | payer OTHER ==
[~2024-07-26] VITALS: Ht 170.2 cm; Wt 68.0 kg
[~2024-07-26 20:50] MED LIST changes: +AMLODIPINE BES2.5 MG PO; +Aspir 8181 MG PO; +CARV3.125 PO; +CLOP75 PO; +LIPITOR80 MG PO; +PANT20 PO
[2024-07-26 21:39] VITALS: BP 132/91
[2024-07-26 22:13] LABS: BASOPHILS ABSOLUTE AUTO 0.08 K/mm3 (0.00-0.23); BASOPHILS PERCENT AUTO 1 % (0-2); EOSINOPHILS PERCENT AUTO 4 % (0-6); Hematocrit 36.6 % (33.0-51.0); Hemoglobin 11.7 g/dL (11.5-16.0); IMMATURE GRAN ABSOLUTE AUTO 0.02 K/mm3 (0.00-0.10); IMMATURE GRAN PERCENT AUTO 0 % (0-1); LYMPHOCYTES ABSOLUTE AUTO 1.86 K/mm3 (0.84-5.20); LYMPHOCYTES PERCENT AUTO 20 % (21-46); MONOCYTES ABSOLUTE AUTO 0.85 K/mm3 (0.16-1.47); MONOCYTES PERCENT AUTO 9 % (4-13); Mean Corpuscular HGB 28.1 pg (26.0-34.0); Mean Corpuscular Volume 88 fL (80-100); Mean Platelet Volume 11.5 fL (9.1-12.4); NEUTROPHILS PERCENT AUTO 66 % (41-73); Platelet Count 302 K/mm3 (150-400); RDW Coefficient Variation 16.2 % (11.7-14.2); RDW Standard Deviation 52.5 fL (35.1-46.3); Red Blood Cell Count 4.16 M/mm3 (3.80-5.20); White Blood Cell Count 9.41 K/mm3 (4.00-11.30)
[2024-07-26 22:28] LABS: Albumin, Blood 3.5 g/dL (3.4-5.0); Albumin/Globulin Ratio 0.8 (0.8-1.8); Bilirubin, Total 0.3 mg/dL (0.1-1.0); Bun/Creatinine Ratio 18.8 (12.0-20.0); Calcium, Blood 9.3 mg/dL (8.5-10.1); Creatinine, Blood 1.49 mg/dL (0.40-1.00); Globulin, Blood 4.5 g/dL (2.2-4.0)
== END 2024-07-26 23:37 | disposition home or self-care (01) ==
LOC: ER 20:50
PROVIDERS: Student in an Organized Health Care Education/Training Program
DX: R10.9 Unspecified abdominal pain (principal); Z79.82 Long term (current) use of aspirin; Z79.899 Other long term (current) drug therapy
CPT/HCPCS: 80053; 85025; 99284

== ENCOUNTER → 2024-10-06 | Outpatient (CLI) | payer OTHER ==
[~2024-10-06] MED LIST changes: +ACET500 PO; +LOVA40 PO
== END | disposition home or self-care (01) ==
LOC: LAB 16:06 → LAB SHORT 16:06
DX: N39.0 Urinary tract infection, site not specified (principal)
CPT/HCPCS: 87077; 87086; 87185

== ENCOUNTER 2025-02-11 08:48 | Day surgery (SDC) | payer OTHER ==
[~2025-02-11] VITALS: Ht 170.2 cm; Wt 71.7 kg
[~2025-02-11 08:48] MED LIST changes: +DIPH25 PO
[2025-02-11 09:38] VITALS: BP 157/103
[2025-02-11] MEDS ORDERED: NS 250 ML IV ONE (10:51)
[2025-02-11] MEDS ORDERED: NS 500 ML IV ONE (11:03)
[2025-02-11] MEDS ORDERED: FentaNYL Citrate 50 MCG/ML 2 ML Injection ONE (11:03)
[2025-02-11] MEDS ORDERED: Midazolam HCl 1MG / ML 2ML Vial ONE (11:03)
[2025-02-11 11:58] VITALS: BP 138/88
--- NOTE | 2025-02-11 13:25 | NUR ---
PT AND FAMILY VERBALIZED UNDERSTANDING OF WRITTEN AND VERBAL D/C INST. IV REMOVED. PT TAKEN OUT OF THE DEPARTMENT VIA W/C.
== END 2025-02-11 12:00 | disposition home or self-care (01) ==
LOC: MHTC 08:48
DX: Z43.6 Encounter for attention to other artificial openings of urinary tract (principal); N13.5 Crossing vessel and stricture of ureter without hydronephrosis; K68.3 Retroperitoneal hematoma; I25.2 Old myocardial infarction; N18.9 Chronic kidney disease, unspecified; E78.5 Hyperlipidemia, unspecified; Z87.891 Personal history of nicotine dependence; Z79.82 Long term (current) use of aspirin; Z79.02 Long term (current) use of antithrombotics/antiplatelets; Z79.899 Other long term (current) drug therapy; Z91.09 Other allergy status, other than to drugs and biological substances; Z91.041 Radiographic dye allergy status
CPT/HCPCS: 50435; 99152; 99153; C1729; C1769; J2250; J3010; J7040; J7050; Q9967

== ENCOUNTER 2025-03-02 06:12 | Day surgery (SDC) | payer OTHER ==
[~2025-03-02] VITALS: Ht 170.2 cm; Wt 72.6 kg
[2025-03-02] MEDS ORDERED: CeFAZolin Sodium 2,000 MG VIAL ONE (06:17)
[2025-03-02] MEDS ORDERED: LOVASTATIN40 MG PO (06:37)
[2025-03-02] MEDS ORDERED: SYNTHROID25 M12 PO (06:39)
[2025-03-02] MEDS ORDERED: LORA10ER PO (06:42)
[2025-03-02] MEDS ORDERED: 1/2 NS 250ml250 ML (06:42)
[2025-03-02] MEDS ORDERED: THERA-D2000 UNIT PO (06:46)
[2025-03-02] MEDS ORDERED: Lidocaine 2% Jelly Uro-Jet ONE (06:53)
[2025-03-02] MEDS ORDERED: FentaNYL Citrate 50 MCG/ML 2 ML Injection ONE (07:09)
[2025-03-02] MEDS ORDERED: Midazolam HCl 1MG / ML 2ML Vial ONE (07:10)
[2025-03-02] MEDS ORDERED: Ondansetron HCl 2 MG / ML 2ML Vial ONE (07:45)
--- NOTE | 2025-03-02 07:56 | NUR ---
03/02/25 0756 Carol Ray ISO-DELMY MIXED ON THE FIELD 1:1 WITH NACL FOR RETROGRADE PYELOGRAM.
[2025-03-02 09:16] VITALS: BP 125/67
--- NOTE | 2025-03-02 09:42 | NUR ---
03/02/25 0942 Ericka Brooks PT C/O ABOUT MULTIPLE THINGS THROUGHOUT THE RECOVERY PROCESS. THIS RN HAD TO REASSURE PT, TO CALM DOWN. ALL QUESTIONS ANSWERED, CONCERNS ADDRESSED. PT EDUCATION PROVIDED TO PT AND PT'S MOTHER WAS AT BEDSIDE. PT ABLE TO VOID WELL. PT VERBALIZED UNDERSTANDING OF PT EDUCATION. PT COLLECTED ALL PERSONAL BELONGINGS. PT ASSISTED TO AND TO PRIVATE VEHICLE.
== END 2025-03-02 09:40 | disposition home or self-care (01) ==
LOC: ORSCSDS 06:12
PROVIDERS: Urology
PROC: 0TP98DZ Removal of Intraluminal Device from Ureter, Via Natural or Artificial Opening Endoscopic (ICD-10-PCS; principal; 2025-03-02 07:30)
PROC: 0T788DZ Dilation of Bilateral Ureters with Intraluminal Device, Via Natural or Artificial Opening Endoscopic (ICD-10-PCS; principal; 2025-03-02 07:30)
DX: N13.30 Unspecified hydronephrosis (principal); K68.3 Retroperitoneal hematoma; I25.10 Atherosclerotic heart disease of native coronary artery without angina pectoris; Z79.02 Long term (current) use of antithrombotics/antiplatelets; N18.9 Chronic kidney disease, unspecified; Z79.899 Other long term (current) drug therapy; Z79.82 Long term (current) use of aspirin
CPT/HCPCS: C1758; C1769; C2617; J0690; J2250; J2405; J2704; J3010; J7120